=== PATIENT | female | born 1940 | race Caucasian/White ===

== ENCOUNTER → 2019-10-18 13:54 | Outpatient (BNVA) | payer MEDICARE, SELFPAY | PROVIDERS: Family Provider Nurse Practitioner Family; PCP Nurse Practitioner Family; Visit Provider Nurse Practitioner Family | DX: J22 Unspecified acute lower respiratory infection (principal); I70.90 Unspecified atherosclerosis | CPT/HCPCS: 71046 ==

== ENCOUNTER → 2020-07-02 09:32 | Outpatient (BNVA) | payer MEDICARE, SELFPAY | PROVIDERS: Family Provider Nurse Practitioner Family; PCP Nurse Practitioner Family; Visit Provider Nurse Practitioner Family | DX: D64.9 Anemia, unspecified (principal); E11.9 Type 2 diabetes mellitus without complications; Z79.4 Long term (current) use of insulin; E55.9 Vitamin D deficiency, unspecified; E78.2 Mixed hyperlipidemia; I10 Essential (primary) hypertension; R39.9 Unspecified symptoms and signs involving the genitourinary system | CPT/HCPCS: 80053; 80061; 81003; 82306; 82728; 83036; 83550; 84443; 85025 ==

== ENCOUNTER 2020-07-09 11:12 | Emergency (ER) | payer MEDICARE, SELFPAY ==
--- NOTE | 2020-07-09 11:15 | XRR_ITS ---
PROCEDURE INFORMATION: Exam: XR Chest, 1 View Exam date and time: 07/09/2020 11:37 AM Age: 79 years old Clinical indication: Cough TECHNIQUE: Imaging protocol: XR of the chest Views: 1 view. COMPARISON: CR XR chest 2V* [id number] 10/18/2019 10:52 AM FINDINGS: Lungs: Emphysema No focal infiltrate. Question subtle interstitial prominence left lung base. Consider follow-up two view chest if indicated. Pleural space: Unremarkable. No pleural effusion. No pneumothorax. Heart/Mediastinum: Unremarkable. No cardiomegaly. Bones/joints: Unremarkable. XR/XR chest 1V portable [id number] IMPRESSION: No focal infiltrate. Question subtle interstitial prominence left lung base. Consider follow-up two view chest if indicated.
[2020-07-09 11:35] VITALS: BP 112/75; PULSE 77; RESP 20; TEMP 37.8; O2SAT 97; BMI 30.2
--- NOTE | 2020-07-09 11:51 | ECG_ITS ---
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 [id number] f
--- NOTE | 2020-07-09 12:03 | ED_ITS ---
HPI - Fever General: Chief Complaint: Fever Stated Complaint: FEVER, COUGH Time Seen by Provider: 07/09/20 11:48 Source: patient Mode of arrival: ambulatory Limitations: no limitations History of Present Illness: HPI Narrative: 79-year-old female who states she has had a cough along with fever over the last week. States she is in mild shortness of breath. Has had some nausea with no vomiting. Patient is currently in no distress and is 96% on room air. She has unknown sick contacts. Patient does have a temperature of 100 here. Denies any chest pain. Associated symptoms: Deny abdominal pain, chest pain, diarrhea, dysuria, headache(s), nausea or vomiting Review of Systems Const: Reports: fever(s) Eyes: Denies: blurry vision or eye discomfort ENMT: Denies: throat pain or dental pain Card: Denies: chest pain Resp: Reports: dyspnea and non-productive cough GI: Denies: abdominal pain, nausea, vomiting or diarrhea : Denies: dysuria Musc: Denies: neck pain or back pain Skin/Breast: Denies: rash Neuro: Denies: headache(s) Psych: Denies: depression Carlito/Lymph: Denies: easy bruising All/Imm: Denies: urticaria PFSH ED PFSH: Medical History Anemia Diabetes mellitus, type II Fibromyalgia Hypertension Mixed hyperlipidemia Systemic lupus erythematosus arthritis Vitamin D deficiency Surgical History Status post total left knee replacement Family History Other Anemia Social History Smoking and tobacco status: never smoked Second hand smoke exposure: No Smoking risk assessment/counseling performed?: No Alcohol intake: never Desire information about alcohol rehabilitation?: No Counseling given: No Desire information about substance/drug rehabilitation?: No Counseling given: No Physical Exam Const: COMMON NORMALS: no acute distress, patient oriented x3 and healthy appearing HENMT: COMMON NORMALS: normocephalic and atraumatic HEAD & SCALP: normocephalic and atraumatic Eye: COMMON NORMALS: Equal, round and reactive pupils present and EOMs intact bilaterally PUPIL: Yes Equal, round and reactive pupils present Neck/C-Spine: COMMON NORMALS: full ROM and supple Chest: COMMONS NORMALS: normal inspection of the chest and normal palpation of entire chest wall Resp: COMMON NORMALS: normal respiratory effort, No retractions, No use of accessory muscles and clear to auscultation bilaterally AUSCULTATION: clear to auscultation bilaterally Cardio: COMMON NORMALS: regular rate, regular rhythm and No murmurs present (Cardio) RATE: regular rate RHYTHM: regular rhythm GI: COMMON NORMALS: Normal to inspection, nondistended, normoactive bowel sounds present, Soft to palpation, non-tender and no masses PALPATION: Yes Soft to palpation Extremity: COMMON NORMALS: normal to inspection and full ROM Neuro: COMMON NORMALS: patient oriented x3, moves all extremities and no focal motor deficits Psych: COMMON NORMALS: mental status grossly normal, Normal thought process present and cooperative THOUGHT PROCESS: Normal thought process present Skin: COMMON NORMALS: no rashes or lesions noted and no wounds GENERAL SKIN EXAM: no rashes or lesions noted Course Vital Signs: Vital signs: Vital Signs Temperature 98.7 F 07/09/20 12:20 Pulse Rate 78 07/09/20 12:20 Respiratory Rate 18 07/09/20 12:20 Blood Pressure 141/88 07/09/20 12:20 Pulse Oximetry 96 07/09/20 12:20 MDM - Fever MDM Narrative: Medical decision making narrative: Patient presents here with cough along with fever and likely a viral URI. She is well-appearing here and x-ray is normal. Patient's lab work here is all normal as well and she has no signs of sepsis. Will send a COVID screening out to [place]. I informed her to quarantine until the results are back. She is to follow-up with her PCP next week and is to return to the ER if worsening. She understands and agrees to the plan. Lab Data: Labs: Lab Results 07/09/20 07/09/20 07/09/20 Range/Units 12:10 12:10 12:10 WBC 6.5 (4.0-10.0) 10^3/ uL RBC 4.22 (4.1-5.3) 10^6/u L Hgb 13.2 (11.5-15.3) g/dL Hct 41.5 (37.0-47.0) % MCV 98.3 (81-99) fL MCH 31.3 (28.0-34.0) pg MCHC 31.8 (30.0-36.0) g/dL RDW 14.7 (12.1-15.1) % Plt Count 265 (130-400) 10^3/c mm MPV 9.1 (7.4-10.4) fL Neut % (Auto) 66.9 % Lymph % (Auto) 21.0 % [place] % (Auto) 10.6 % Eos % (Auto) 0.8 % Baso % (Auto) 0.2 % Neut # (Auto) 4.38 (1.8-7.7) 10^3/u L Lymph # (Auto) 1.4 (0.8-4.8) 10^3/u L [place] # (Auto) 0.7 (0.2-0.9) 10^3/u L Eos # (Auto) 0.1 (0.0-0.8) 10^3/u L Baso # (Auto) 0.0 (0.0-0.1) 10^3/u L Nucleated RBC % (a uto) 0 % Nucleated RBCs # 0.0 /100WBC Fibrinogen 409 (174-498) mg/dL Sodium 137 (136-145) mmol/L Potassium 3.1 L (3.5-5.1) mmol/L Chloride 100 (98-107) mmol/L Carbon Dioxide 25 (22-29) mmol/L Anion Gap 15.1 (5-19) BUN 18 (8-23) mg/dL Creatinine 0.8 (0.5-0.9) mg/dL GFR Calculation Not Reportable Glucose 110 (65-115) mg/dL Calculated Osmolal ity 287 (285-295) mOsm/k g Lactate (0.5-2.2) mmol/L Calcium 9.2 (8.5-10.5) mg/dL Total Bilirubin 0.2 (0.15-1.2) mg/dL AST 49 H (0-32) U/L ALT 41 H (0-33) U/L Alkaline Phosphata se 47 (35-105) IU/L NT-Pro-B Natriuret Pep 280 (0-450) pg/mL Total Protein 6.6 (6.6-8.7) g/dL Albumin 3.8 (3.5-5.2) g/dL Globulin 2.8 (1.3-4.6) g/dL 07/09/20 Range/Units 12:10 WBC (4.0-10.0) 10^3/ uL RBC (4.1-5.3) 10^6/u L Hgb (11.5-15.3) g/dL Hct (37.0-47.0) % MCV (81-99) fL MCH (28.0-34.0) pg MCHC (30.0-36.0) g/dL RDW (12.1-15.1) % Plt Count (130-400) 10^3/c mm MPV (7.4-10.4) fL Neut % (Auto) % Lymph % (Auto) % [place] % (Auto) % Eos % (Auto) % Baso % (Auto) % Neut # (Auto) (1.8-7.7) 10^3/u L Lymph # (Auto) (0.8-4.8) 10^3/u L [place] # (Auto) (0.2-0.9) 10^3/u L Eos # (Auto) (0.0-0.8) 10^3/u L Baso # (Auto) (0.0-0.1) 10^3/u L Nucleated RBC % (a uto) % Nucleated RBCs # /100WBC Fibrinogen (174-498) mg/dL Sodium (136-145) mmol/L Potassium (3.5-5.1) mmol/L Chloride (98-107) mmol/L Carbon Dioxide (22-29) mmol/L Anion Gap (5-19) BUN (8-23) mg/dL Creatinine (0.5-0.9) mg/dL GFR Calculation Glucose (65-115) mg/dL Calculated Osmolal ity (285-295) mOsm/k g Lactate 1.2 (0.5-2.2) mmol/L Calcium (8.5-10.5) mg/dL Total Bilirubin (0.15-1.2) mg/dL AST (0-32) U/L ALT (0-33) U/L Alkaline Phosphata se (35-105) IU/L NT-Pro-B Natriuret Pep (0-450) pg/mL Total Protein (6.6-8.7) g/dL Albumin (3.5-5.2) g/dL Globulin (1.3-4.6) g/dL Imaging Data^: CXR: Radiologist's impression: [address] [address] XRay Report Signed Patient: Sia Santillan Unit #: [id number] : 1940 Age/Sex: 79 / F ADM Date: 07/09/20 Loc: ER Room/Bed: Attending Dr: Ordering Provider/Ordering MD: Mendoza Sharp MD Date of Service: 07/09/20 Procedure(s): XR chest 1V portable [id number] Accession Number(s): [id number] Report Number: [id number] PROCEDURE INFORMATION: Exam: XR Chest, 1 View Exam date and time: 07/09/2020 11:37 AM Age: 79 years old Clinical indication: Cough TECHNIQUE: Imaging protocol: XR of the chest Views: 1 view. COMPARISON: CR XR chest 2V* [id number] 10/18/2019 10:52 AM FINDINGS: Lungs: Emphysema No focal infiltrate. Question subtle interstitial prominence left lung base. Consider follow-up two view chest if indicated. Pleural space: Unremarkable. No pleural effusion. No pneumothorax. Heart/Mediastinum: Unremarkable. No cardiomegaly. Bones/joints: Unremarkable. XR/XR chest 1V portable [id number] IMPRESSION: No focal infiltrate. Question subtle interstitial prominence left lung base. Consider follow-up two view chest if indicated. EKG Data^: EKG 1: Attestation: I personally reviewed and interpreted this EKG as follows: EKG interpretation date: 07/09/20 EKG interpretation time: 12:12 Interpretation: nsr hr [address] or t wave abnormalities qrs 88 qtc 440 Discharge Plan Discharge Patient Disposition: Home Clinical Impression: Upper respiratory infection Qualifiers: URI type: unspecified URI Qualified Code(s): J06.9 - Acute upper respiratory infection, unspecified Condition: Stable Prescriptions: No Action lidocaine HCl [Xylocaine] 10 mg/mL (1 %) solution 2 ml IM ONCE Qty: 1 RF: 0 ceftriaxone 1 gram recon soln 1 gm IM ONCE Qty: 1 RF: 0 dexamethasone sodium phosphate 10 mg/mL solution 4 mg IM ONCE Qty: 0.4 RF: 0 albuterol sulfate [ProAir HFA] 90 mcg/actuation HFA aerosol inhaler 1 inh INHALATION Q6H PRN (Reason: shortness of breath or wheezing) Qty: 8.5 RF: 2 metformin 850 mg tablet 850 mg PO DAILY RF: 0 methotrexate sodium 2.5 mg tablet 2.5 mg PO DAILY RF: 0 prednisone 10 mg tablet 30 mg PO QDAY Qty: 90 RF: 5 metoprolol tartrate 50 mg tablet 50 mg PO BID Qty: 60 RF: 5 pravastatin 10 mg tablet 10 mg PO DAILY Qty: 30 RF: 2 hydrochlorothiazide 25 mg tablet See Rx Instructions .ROUTE .COMPLEX Qty: 45 RF: 0 potassium chloride 10 mEq capsule, extended release See Rx Instructions .ROUTE .COMPLEX Qty: 30 RF: 5 trazodone 150 mg tablet 150 mg PO DAILY Qty: 30 RF: 0 Discharge Orders: Discharge Order (Routine); Ordered 07/09/20 Ordered By: Mendoza Sharp Referrals: ROBIN Rosas, PRODUCTION SUPERVISOR [Primary Care Provider] - 1-3 days Discharge Diet: Advance as tolerated Discharge Activity: Resume usual activity Discharge Date/Time: 07/09/20 13:10 Coding Level of Care Code ED Bridge Mechanic for Lynneg Fwd Exam Comprehensive
[2020-07-09] MEDS: acetaminophen 325 mg Tablet 650 MG PO (12:12)
[2020-07-09 12:17] LABS: Basophils % 0.2 %; Eosinophils # 0.1 10^3/uL (0.0-0.8); Eosinophils % 0.8 %; Hematocrit 41.5 % (37.0-47.0); Hemoglobin 13.2 g/dL (11.5-15.3); Lymphocytes # 1.4 10^3/uL (0.8-4.8); Mean Corpuscular HGB Conc 31.8 g/dL (30.0-36.0); Mean Corpuscular Hemoglobin 31.3 pg (28.0-34.0); Mean Corpuscular Volume 98.3 fL (81-99); Mean Platelet Volume 9.1 fL (7.4-10.4); Monocytes # 0.7 10^3/uL (0.2-0.9); Monocytes % 10.6 %; Neutrophils # 4.38 10^3/uL (1.8-7.7); Neutrophils % 66.9 %; Nucleated Red Blood Cells % 0 %; Platelet Count 265 10^3/cmm (130-400); Red Blood Count 4.22 10^6/uL (4.1-5.3); Red Cell Distribution Width 14.7 % (12.1-15.1); White Blood Count 6.5 10^3/uL (4.0-10.0)
[2020-07-09 12:20] VITALS: BP 141/88; PULSE 78; RESP 18; TEMP 37.1; O2SAT 96
[2020-07-09 12:33] LABS: Fibrinogen 409 mg/dL (174-498)
[2020-07-09 12:36] LABS: Lactate (Lactic Acid level) 1.2 mmol/L (0.5-2.2)
[2020-07-09 12:45] LABS: Alanine Aminotransferase 41 U/L (0-33); Albumin Level 3.8 g/dL (3.5-5.2); Alkaline Phosphatase 47 IU/L (35-105); Anion Gap 15.1 (5-19); Aspartate Amino Transferase 49 U/L (0-32); Blood Urea Nitrogen 18 mg/dL (8-23); Calcium 9.2 mg/dL (8.5-10.5); Carbon Dioxide 25 mmol/L (22-29); Chloride 100 mmol/L (98-107); Globulin 2.8 g/dL (1.3-4.6); Glucose 110 mg/dL (65-115); NT Pro B Type Natriuretic Pept 280 pg/mL (0-450); Osmolality Calculated 287 mOsm/kg (285-295); Potassium 3.1 mmol/L (3.5-5.1); Sodium 137 mmol/L (136-145); Total Bilirubin 0.2 mg/dL (0.15-1.2); Total Protein 6.6 g/dL (6.6-8.7)
[2020-07-09 13:07] VITALS: BP 128/65; PULSE 73; RESP 18; TEMP 36.9; O2SAT 94
[2020-07-10 17:17] LABS: Quest SARS-CoV-2 RNA DETECTED (NOT DETECTED)
== END 2020-07-09 13:10 | disposition home or self-care (01) ==
PROVIDERS: Emergency Provider Emergency Medicine; Family Provider Nurse Practitioner Family; PCP Nurse Practitioner Family
DX: U07.1 COVID-19 (principal); Z79.84 Long term (current) use of oral hypoglycemic drugs; E11.9 Type 2 diabetes mellitus without complications; I10 Essential (primary) hypertension; E78.2 Mixed hyperlipidemia; M32.9 Systemic lupus erythematosus, unspecified
CPT/HCPCS: 12345; 36415; 71045; 80053; 83605; 83880; 85025; 85384; 87040; 87635; 93005; 99282; 99283

== ENCOUNTER 2020-07-15 10:05 | Inpatient (IN) | payer MEDICARE, SELFPAY ==
[2020-07-15] VITALS (11 sets, daily range): BP systolic 122–153; BP diastolic 62–100; PULSE 72–92; RESP 10–26; TEMP 36.6–39.5; O2SAT 93–99; BMI 30.6
--- NOTE | 2020-07-15 10:12 | XR_ITS ---
WS: [id number] CHEST XRAY TECHNIQUE: Portable chest. CLINICAL INFORMATION: dypsnea, COVID + COMPARISON: July 09, 2020 FINDINGS: Heart: Cardiomegaly. Lungs: Chronic emphysematous changes. New interstitial thickening right greater than left lung bases. No significant pleural fluid. Normal pulmonary vascularity. Bones: Normal visualized bony structures. XR/XR chest 1V portable [id number] IMPRESSION: 1. New interstitial thickening likely interstitial infiltrates in both lung ba ses right greater than left. Recommend correlation for pneumonitis. 2. Cardiomegaly with normal pulmonary vascularity.
--- NOTE | 2020-07-15 10:24 | ED_ITS ---
HPI - SOB/Dyspnea General: Chief Complaint: Shortness of Breath/Dyspnea Stated Complaint: WEAKNESS, COVID + Time Seen by Provider: 07/15/20 10:07 History of Present Illness: HPI Narrative: 79 yo female she returns complaining of generalized weakness and cough shortness of breath she has a fever of 103 she was seen 1 week ago on July 09 with a positive COVID test at that time. He has had increasing shortness of breath with a nose Tamika nausea and vomiting and some diarrhea. Since the time of diagnosis is gotten progressively worse. She is now requiring oxygen at 2 L/min. MD elicited complaint: shortness of breath and cough Onset (ago): day(s) Context: recent illness (COVID-19) and anxiety Timing: constant Severity: moderate Exacerbating factors: exertion and coughing Relieving factors: rest Associated symptoms: Reports cough and fever(s); Deny abdominal pain, chest congestion, chest pain, diaphoresis, dizziness, extremity pain, hemoptysis, lightheadedness, myalgias, nausea, orthopnea, palpitations, paresthesias, polydipsia, polyuria, rash, sense of impending doom, syncope or vomiting Treatment prior to arrival: none Review of Systems Const: Reports: fever(s); Denies: diaphoresis ENMT: Denies: throat pain, ear or mastoid pain, nasal discharge or nasal congestion Card: Denies: chest pain, palpitations, lightheadedness, syncope or orthopnea Resp: Denies: hemoptysis or chest congestion GI: Denies: abdominal pain, nausea or vomiting : Denies: flank pain, difficulty voiding, dysuria, urinary frequency or urinary urgency Musc: Denies: extremity pain Skin/Breast: Denies: rash or pruritus Neuro: Denies: dizziness Endo: Denies: polyuria or polydipsia PFSH ED PFSH: Medical History Anemia Diabetes mellitus, type II -A1c at goal-6.1 (06/2020) -Accu-Cheks, ISS, hypoglycemia precautions -Hold metformin Fibromyalgia Hypertension -Currently hemodynamically stable, continue to monitor vital signs -continue oral antihypertensives Mixed hyperlipidemia -CPK wnl, on statin Systemic lupus erythematosus arthritis -Hold methotrexate, resume oral steroids Vitamin D deficiency Surgical History Status post total left knee replacement Family History Other Anemia Social History Smoking and tobacco status: never smoked Second hand smoke exposure: No Smoking risk assessment/counseling performed?: No Alcohol intake: never Desire information about alcohol rehabilitation?: No Counseling given: No Desire information about substance/drug rehabilitation?: No Counseling given: No Lives independently: Yes Marital status: / Physical Exam Const: COMMON NORMALS: no acute distress GENERAL APPEARANCE: cooperative and comfortable ORIENTATION/CONSCIOUSNESS: Yes awake, Yes oriented to person, Yes oriented to place and Yes oriented to time HENMT: COMMON NORMALS: normocephalic, atraumatic and hearing grossly normal bilaterally HEAD & SCALP: normocephalic and atraumatic Eye: COMMON NORMALS: Equal, round and reactive pupils present, EOMs intact bilaterally, conjunctivae normal and no scleral icterus CONJUNCTIVA: Yes conjunctivae normal PUPIL: Yes Equal, round and reactive pupils present Neck/C-Spine: COMMON NORMALS: full ROM, no lymphadenopathy, supple and no JVD Resp: AUSCULTATION: rhonchi (Mild) and wheezes (Very slight) expiratory wheezes Cardio: COMMON NORMALS: no JVD, regular rate, regular rhythm and No murmurs present (Cardio) RATE: regular rate RHYTHM: regular rhythm GI: COMMON NORMALS: Soft to palpation and No hepatosplenomegaly present AUSCULTATION: Yes normoactive bowel sounds PALPATION: Yes Soft to palpation, No Tenderness to palpation present (GI), No Guarding due to palpation present (GI) and Yes No hepatosplenomegaly present Extremity: COMMON NORMALS: normal to inspection, capillary refill normal, no clubbing, cyanosis or edema, no calf tenderness and no pedal edema Neuro: SENSORIUM/ORIENTATION: Yes oriented to person, Yes oriented to place and Yes oriented to time Skin: COMMON NORMALS: no rashes or lesions noted GENERAL SKIN EXAM: no rashes or lesions noted Course Vital Signs: Vital signs: Vital Signs Temperature 96.8 F L 07/18/20 12:53 Pulse Rate 52 L 07/18/20 12:53 Respiratory Rate 14 07/18/20 12:53 Blood Pressure 148/89 07/18/20 12:53 Pulse Oximetry 97 07/18/20 12:53 MDM - SOB/Dyspnea Lab Data: Labs: Lab Results 07/15/20 07/15/20 07/15/20 Range/Units 10:52 11:43 11:43 WBC 4.0 (4.0-10.0) 10^3/ uL RBC 4.42 (4.1-5.3) 10^6/u L Hgb 13.6 (11.5-15.3) g/dL Hct 42.9 (37.0-47.0) % MCV 97.1 (81-99) fL MCH 30.8 (28.0-34.0) pg MCHC 31.7 (30.0-36.0) g/dL RDW 14.7 (12.1-15.1) % Plt Count 275 (130-400) 10^3/c mm MPV 8.8 (7.4-10.4) fL Neut % (Auto) 48.9 % Lymph % (Auto) 32.8 % [place] % (Auto) 15.9 % Eos % (Auto) 0.0 % Baso % (Auto) 0.2 % Neut # (Auto) 1.96 (1.8-7.7) 10^3/u L Lymph # (Auto) 1.3 (0.8-4.8) 10^3/u L [place] # (Auto) 0.6 (0.2-0.9) 10^3/u L Eos # (Auto) 0.0 (0.0-0.8) 10^3/u L Baso # (Auto) 0.0 (0.0-0.1) 10^3/u L Nucleated RBC % (a uto) 0 % Nucleated RBCs # 0.0 /100WBC Fibrinogen 564 H (174-498) mg/dL D-Dimer 1.10 H (0-0.59) ug/mIFE U Specimen Type Arterial Sample Site Lb ABG pH 7.48 H (7.35-7.45) ABG pCO2 37.8 (35-45) mmHg ABG pO2 79.0 L (80.0-100.0) mmH g ABG HCO3 28.3 H (22-26) mmol/L ABG Base Excess 4.7 H (-2.0-2.0) mmol/ L Que Test Pos Hematocrit 41.2 (37-47) % O2 Delivery Device Nc O2 Liters/Min 2.0 % FiO2 28.0 % Senior Abap Developer ID Jmn Sodium (136-145) mmol/L Potassium (3.5-5.1) mmol/L Chloride (98-107) mmol/L Carbon Dioxide (22-29) mmol/L Anion Gap (5-19) BUN (8-23) mg/dL Creatinine (0.5-0.9) mg/dL GFR Calculation Glucose (65-115) mg/dL Calculated Osmolal ity (285-295) mOsm/k g Lactic Acid (0.5-2.2) mmol/L Calcium (8.5-10.5) mg/dL Ferritin (15-150) ng/mL Total Bilirubin (0.15-1.2) mg/dL AST (0-32) U/L ALT (0-33) U/L Alkaline Phosphata se (35-105) IU/L Lactate Dehydrogen ase (135-214) U/L Creatine Kinase (26-192) U/L C-Reactive Protein (0.0-4.9) mg/L Total Protein (6.6-8.7) g/dL Albumin (3.5-5.2) g/dL Globulin (1.3-4.6) g/dL Procalcitonin (0-0.5) ng/mL 07/15/20 07/15/20 Range/Units 11:43 11:43 WBC (4.0-10.0) 10^3/ uL RBC (4.1-5.3) 10^6/u L Hgb (11.5-15.3) g/dL Hct (37.0-47.0) % MCV (81-99) fL MCH (28.0-34.0) pg MCHC (30.0-36.0) g/dL RDW (12.1-15.1) % Plt Count (130-400) 10^3/c mm MPV (7.4-10.4) fL Neut % (Auto) % Lymph % (Auto) % [place] % (Auto) % Eos % (Auto) % Baso % (Auto) % Neut # (Auto) (1.8-7.7) 10^3/u L Lymph # (Auto) (0.8-4.8) 10^3/u L [place] # (Auto) (0.2-0.9) 10^3/u L Eos # (Auto) (0.0-0.8) 10^3/u L Baso # (Auto) (0.0-0.1) 10^3/u L Nucleated RBC % (a uto) % Nucleated RBCs # /100WBC Fibrinogen (174-498) mg/dL D-Dimer (0-0.59) ug/mIFE U Specimen Type Sample Site ABG pH (7.35-7.45) ABG pCO2 (35-45) mmHg ABG pO2 (80.0-100.0) mmH g ABG HCO3 (22-26) mmol/L ABG Base Excess (-2.0-2.0) mmol/ L Que Test Hematocrit (37-47) % O2 Delivery Device O2 Liters/Min % FiO2 % Senior Abap Developer ID Sodium 133 L (136-145) mmol/L Potassium 3.4 L (3.5-5.1) mmol/L Chloride 94 L (98-107) mmol/L Carbon Dioxide 28 (22-29) mmol/L Anion Gap 14.4 (5-19) BUN 13 (8-23) mg/dL Creatinine 0.8 (0.5-0.9) mg/dL GFR Calculation Not Reportable Glucose 99 (65-115) mg/dL Calculated Osmolal ity 276 L (285-295) mOsm/k g Lactic Acid 1.1 (0.5-2.2) mmol/L Calcium 8.6 (8.5-10.5) mg/dL Ferritin 798 H (15-150) ng/mL Total Bilirubin 0.4 (0.15-1.2) mg/dL AST 35 H (0-32) U/L ALT 25 (0-33) U/L Alkaline Phosphata se 52 (35-105) IU/L Lactate Dehydrogen ase 308 H (135-214) U/L Creatine Kinase 37 (26-192) U/L C-Reactive Protein 77.7 H (0.0-4.9) mg/L Total Protein 6.8 (6.6-8.7) g/dL Albumin 3.7 (3.5-5.2) g/dL Globulin 3.1 (1.3-4.6) g/dL Procalcitonin 0.10 (0-0.5) ng/mL Discharge Plan Discharge Patient Disposition: Admitted As Inpatient Admit Provider: Oneyda Kilpatrick Clinical Impression: COVID-19 virus infection, Anemia Condition: Stable Interventions: ED Discharge Assessment Last Done: 07/15/20 21:41 ED Charges Last Done: 07/15/20 21:41 Discharge Date/Time: 07/15/20 21:20 Coding Level of Care Code ED Internal Medicine Hospitalist for Avery Pennington
[2020-07-15 11:08] LABS: ABG PCO2 37.8 mmHg (35-45); ABG PH Result 7.48 (7.35-7.45); Base Excess ABG 4.7 mmol/L (-2.0-2.0); Blood Gas Allen Test POS; HCO3 ABG 28.3 mmol/L (22-26)
[2020-07-15 11:09] LABS: Arterial Blood Gas Hematocrit 41.2 % (37-47); Blood Gas Sample Site LB; Blood Gas Sample Type ARTERIAL; Oxygen Device NC
[2020-07-15 11:49] LABS: Basophils % 0.2 %; Hematocrit 42.9 % (37.0-47.0); Hemoglobin 13.6 g/dL (11.5-15.3); Lymphocytes # 1.3 10^3/uL (0.8-4.8); Lymphocytes % 32.8 %; Mean Corpuscular HGB Conc 31.7 g/dL (30.0-36.0); Mean Corpuscular Hemoglobin 30.8 pg (28.0-34.0); Mean Corpuscular Volume 97.1 fL (81-99); Mean Platelet Volume 8.8 fL (7.4-10.4); Monocytes # 0.6 10^3/uL (0.2-0.9); Monocytes % 15.9 %; Neutrophils # 1.96 10^3/uL (1.8-7.7); Neutrophils % 48.9 %; Nucleated Red Blood Cells % 0 %; Platelet Count 275 10^3/cmm (130-400); Red Blood Count 4.42 10^6/uL (4.1-5.3); Red Cell Distribution Width 14.7 % (12.1-15.1)
[2020-07-15 12:10] LABS: Fibrinogen 564 mg/dL (174-498)
[2020-07-15 12:29] LABS: Alanine Aminotransferase 25 U/L (0-33); Albumin Level 3.7 g/dL (3.5-5.2); Alkaline Phosphatase 52 IU/L (35-105); Anion Gap 14.4 (5-19); Aspartate Amino Transferase 35 U/L (0-32); Blood Urea Nitrogen 13 mg/dL (8-23); C Reactive Protein 77.7 mg/L (0.0-4.9); Calcium 8.6 mg/dL (8.5-10.5); Carbon Dioxide 28 mmol/L (22-29); Chloride 94 mmol/L (98-107); Creatine Phosphokinase 37 U/L (26-192); Ferritin 798 ng/mL (15-150); Globulin 3.1 g/dL (1.3-4.6); Glucose 99 mg/dL (65-115); Lactate Dehydrogenase 308 U/L (135-214); Osmolality Calculated 276 mOsm/kg (285-295); Potassium 3.4 mmol/L (3.5-5.1); Sodium 133 mmol/L (136-145); Total Bilirubin 0.4 mg/dL (0.15-1.2); Total Protein 6.8 g/dL (6.6-8.7)
[2020-07-15] MEDS: dexamethasone 4 mg/mL INJ 6 MG IVP (12:33)
[2020-07-15] MEDS: ondansetron 2 mg/ML SDV 2 mL 4 MG IVP (12:33)
[2020-07-15 13:26] LABS: Lactic Sepsis W/Reflex 1.1 mmol/L (0.5-2.2); Slide Review Slide Review Perform
[2020-07-15] MEDS: acetaminophen 325 mg Tablet 650 MG PO (14:30)
--- NOTE | 2020-07-15 16:13 | PC.NURSE ---
Temp decreased with medication. Feeling better.
--- NOTE | 2020-07-15 19:29 | PM.HP ---
Providers/Chief Complaint Admitting Physician: Oneyda Kilpatrick MD Primary Care Provider: CRYSTAL Johnson Chief Complaint: WEAKNESS, COVID + History of Present Illness Sia Santillan is a 79 year old female with PMHx noted below presents with complaints of worsening generalized weakness, fatigue, loss of sense of taste and smell, decreased appetite, nausea, dry heaves, malaise and fever for the past several days. She was initially diagnosed with COVID-19 on 07/09 and initially seemed to do well, was seen in the ER on that day and has been compliant with self-isolation precautions. Unfortunately, over the past few days she has felt progressively poorly to the point that she does not feel comfortable being at home on her own. She is known to me from a previous encounter. She is not oxygen dependent at baseline and is currently requiring 2 L nasal cannula with saturation in the mid 90s. Her temperature on triage was as high as 103.1F but this has normalized with Tylenol. She is otherwise hemodynamically stable. Work-up shows normal CBC, mild hyponatremia with a sodium of 133, mild hypokalemia with a potassium of 3.4, normal renal function, elevated d-dimer, fibrinogen, ferritin, CRP and LDH. CPK and lactic acid are normal. Chest x-ray is reported as interstitial thickening in bilateral lung bases, worse on the right in a background of chronic emphysema. She has received her first dose of Remdesevir as well as a dose of steroids. Due to need for continued monitoring of respiratory status, supplemental oxygen support she will be admitted to viral ICU for continued management. Review of Systems Const: Reports: fever(s), chills, body aches, change in appetite (decreased appetite), fatigue and malaise Eyes: Denies: change in vision ENMT: Reports: dry mouth and other (loss of sense of taste and smell) Card: Reports: dyspnea on exertion; Denies: chest pain, swelling of feet/ankles or lightheadedness Resp: Reports: dyspnea and non-productive cough GI: Reports: nausea and diarrhea; Denies: abdominal pain, vomiting or hematochezia : Denies: hematuria Musc: Denies: back pain Skin/Breast: Denies: rash Neuro: Reports: weakness in extremities; Denies: numbness in extremities Psych: Reports: sleeping more; Denies: anxiety Medications/Allergies Home Medications Medication Instructions Recorded Confirmed Last Taken Type metoprolol tartrate 50 mg tablet 50 mg PO BID #60 tab 12/10/19 07/15/20 Unknown Rx pravastatin 10 mg tablet 10 mg PO DAILY #30 tab 04/16/20 07/15/20 Unknown Rx hydrochlorothiazide 25 mg tablet See Rx Instructions .ROUTE 04/18/20 07/15/20 Unknown Rx .COMPLEX #45 tab trazodone 150 mg tablet 150 mg PO DAILY #30 tab 06/19/20 07/15/20 Unknown Rx metformin 850 mg tablet 425 mg PO DAILY 07/02/20 07/15/20 Unknown History methotrexate sodium 2.5 mg tablet See Rx Instructions .ROUTE .COMPLEX 07/02/20 07/15/20 Unknown History azithromycin 250 mg tablet See Rx Instructions PO .COMPLEX #6 07/14/20 07/15/20 07/14/20 Rx tab ondansetron HCl 4 mg tablet 4 mg PO Q8H PRN #15 tab 07/14/20 07/15/20 Unknown Rx Equate Headache Relief 2 tab PO BID 07/15/20 07/15/20 Unknown History ProAir HFA 1 - 2 inh INHALATION Q6H PRN 07/15/20 07/15/20 Unknown History acetaminophen [Tylenol Extra 500 - 1,000 mg PO PRN 07/15/20 07/15/20 07/14/20 History Strength] ascorbic acid (vitamin C) [Vitamin 500 mg PO DAILY 07/15/20 07/15/20 Unknown History C] calcium carbonate [Calcium 600] 600 mg PO DAILY 07/15/20 07/15/20 Unknown History cholecalciferol (vitamin D3) 25 mcg PO DAILY 07/15/20 07/15/20 Unknown History [Vitamin D3] cyanocobalamin (vitamin B-12) 1,000 mcg PO DAILY 07/15/20 07/15/20 Unknown History [Vitamin B-12] folic acid 0.8 mg PO DAILY 07/15/20 07/15/20 Unknown History iron 650 mg PO DAILY 07/15/20 07/15/20 Unknown History multivitamin [Multiple Vitamins] 1 tab PO DAILY 07/15/20 07/15/20 Unknown History potassium chloride 10 meq PO DAILY 07/15/20 07/15/20 Unknown History prednisone 10 mg PO DAILY 07/15/20 07/15/20 Unknown History Allergies Allergy/AdvReac Type Severity Reaction Status Date / Time codeine Allergy Intermediate unknown Verified 07/15/20 10:26 hydrocodone Allergy Intermediate unknown Verified 07/15/20 10:26 ibuprofen Allergy Intermediate unknown Verified 07/15/20 10:26 moxifloxacin [From Avelox] Allergy Intermediate unknown Verified 07/15/20 10:26 sulfamethoxazole [Bactrim] Allergy Intermediate unknown Verified 07/15/20 10:26 tramadol Allergy Intermediate unknown Verified 07/15/20 10:26 trimethoprim [Bactrim] Allergy Intermediate unknown Verified 07/15/20 10:26 PFSH Acute PFSH: Medical History Anemia Diabetes mellitus, type II Fibromyalgia Hypertension Mixed hyperlipidemia Systemic lupus erythematosus arthritis Vitamin D deficiency Surgical History Status post total left knee replacement Family History Other Anemia Social History (Updated 07/15/20 @ 19:37 by Oneyda Kilpatrick MD) Smoking and tobacco status: never smoked Second hand smoke exposure: No Smoking risk assessment/counseling performed?: No Alcohol intake: never Desire information about alcohol rehabilitation?: No Counseling given: No Desire information about substance/drug rehabilitation?: No Counseling given: No Lives independently: Yes Marital status: / Vitals/I&O/Wt Last Vital Signs Temp 98.4 F 07/15/20 18:03 Pulse 72 07/15/20 18:03 Resp 20 H 07/15/20 18:03 BP 122/62 07/15/20 18:03 Pulse Ox 96 07/15/20 18:03 Weight last 48 hrs Weight 73.482 kg Physical Exam Const: COMMON NORMALS: no acute distress, patient oriented x3 and alert GENERAL APPEARANCE: cooperative, comfortable and ill appearing NUTRITIONAL APPEARANCE: overweight ORIENTATION/CONSCIOUSNESS: Yes awake OTHER: -fatigued, looks appropriate for age HENMT: COMMON NORMALS: normocephalic, atraumatic, hearing grossly normal bilaterally and moist oral mucous membranes HEAD & SCALP: normocephalic and atraumatic Eye: COMMON NORMALS: Equal, round and reactive pupils present, EOMs intact bilaterally and conjunctivae normal CONJUNCTIVA: Yes conjunctivae normal PUPIL: Yes Equal, round and reactive pupils present Neck/C-Spine: COMMON NORMALS: full ROM GENERAL: Yes normal visual inspection and Yes trachea midline Resp: COMMON NORMALS: normal respiratory effort, No retractions and No use of accessory muscles EFFORT & INSPECTION: Yes able to speak in complete sentences, Yes symmetric chest movement and No tachypneic AUSCULTATION: rhonchi OTHER: -on 2 L NC, symmetrical air entry bilaterally Cardio: COMMON NORMALS: regular rate, regular rhythm, S1 normal heart sound present, S2 normal heart sound present and No murmurs present (Cardio) RATE: regular rate RHYTHM: regular rhythm HEART SOUNDS: S1 normal heart sound present and S2 normal heart sound present GI: COMMON NORMALS: Normal to inspection, nondistended, normoactive bowel sounds present, Soft to palpation and non-tender INSPECTION: Yes central obesity PALPATION: Yes Soft to palpation Extremity: COMMON NORMALS: normal to inspection, full ROM and no clubbing, cyanosis or edema; negative for no pedal edema Neuro: COMMON NORMALS: patient oriented x3, moves all extremities, no focal motor deficits and no sensory deficits noted SENSORIUM/ORIENTATION: Yes alert Psych: COMMON NORMALS: mental status grossly normal, Normal thought process present, cooperative, normal affect and speech normal SPEECH: Yes normal speech THOUGHT PROCESS: Normal thought process present Skin: COMMON NORMALS: no rashes or lesions noted, no jaundice, no petechiae and no mottling GENERAL SKIN EXAM: no rashes or lesions noted Data : 07/15/20 11:43 07/15/20 11:43 Micro: Microbiology 07/15/20 11:50 Gram Stain - Final Sputum - Expectorated Sputum A&P Assessment and plan (1) COVID-19 virus infection: -Found to be positive for COVID-19 infection on 07/09 and initially seemed to be stable but over the past several days has had ongoing malaise, decreased appetite, nausea, ageusia, anosmia, increasing shortness of breath with decreasing activity, fever and generally been unable to take care of herself. -Isolation precautions -Currently requiring 2 L nasal cannula, not oxygen dependent at baseline. Has been started on remdesevir -Received dose of steroids, continue this -Continue supportive care including vitamin C, zinc, inhaler treatments as needed, antitussives -Check influenza, MRSA, Legionella, bacterial antigens -Order blood culture -Chest x-ray with noted interstitial thickening bilateral lung bases, worse on the right, repeat imaging in about 48 hours to monitor progression -Pulmonary toilet, incentive spirometry, flutter valve, RT to assess and treat -Telemetry monitoring -Monitor vital signs -Close monitoring of respiratory status -Home oxygen evaluation prior to discharge if still oxygen dependent -ABG with noted hypoxia -Elevated fibrinogen, d-dimer, ferritin, CRP, LDH. Continue to trend inflammatory markers -start on AC with Eliquis due to increased risk of thrombosis Status: Acute (2) Hypoxia: -Secondary to acute COVID-19 infection as noted above Status: Acute (3) Systemic lupus erythematosus arthritis: -Hold methotrexate, oral steroids Status: Chronic (4) Hypertension: -Currently hemodynamically stable, continue to monitor vital signs -Resume oral antihypertensives Status: Chronic Qualifiers: Hypertension type: essential hypertension Qualified Code(s): I10 - Essential (primary) hypertension (5) Diabetes mellitus, type II: -A1c at goal-6.1 (06/2020) -Accu-Cheks, ISS, hypoglycemia precautions -Hold metformin Status: Chronic Qualifiers: Diabetes mellitus skilled nursing insulin use: without skilled nursing use Diabetes mellitus complication status: without complication Qualified Code(s): E11.9 - Type 2 diabetes mellitus without complications (6) Fibromyalgia: Status: Chronic (7) Mixed hyperlipidemia: -CPK wnl, resume statin Status: Chronic Additional A&P Information -consistent carb diet as tolerated -GI ppx with famotidine -DVT ppx not needed as on Eliquis -Dispo: home, lives independently -Code status: FULL code -[facility] Necessity Statement*: Sia Rose Santillan's hospital stay will require greater than 2 midnights for management of acute COVID-19 infection with associated hypoxia, started on antiviral treatment and currently requiring supplemental oxygen support. Time Spent in Patient Care: Greater than 35 minutes (>than 50% of time spent in counselling and/or direct pt care on unit). 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
[2020-07-16] VITALS (27 sets, daily range): BP systolic 98–182; BP diastolic 46–102; PULSE 51–92; RESP 7–22; TEMP 36.2–36.9; O2SAT 89–98
[2020-07-16] MEDS: trazodone 150 mg Tablet PO ×2 (00:17→22:00)
[2020-07-16] MEDS: acetaminophen 325 mg Tablet 650 MG PO (00:18)
--- NOTE | 2020-07-16 07:03 | PC.NURSE ---
Shift Events: Patient transferred to unit from ED. Patient alert and oriented x 4, received with patient on 2LO2 nasal cannula. Blood cultures drawn upon arrival. MRSA swab also obtained but patient refused flu swab. Patient rested quietly throughout night. Patient gets up with 1 assist. Attempted several times to get labs. This nurse attempted 4 times and another ICU nurse tried twice. Passed this information onto day shift. Patient needs a line as she only has a 22g in her wrist. Patient was able to wean off of oxygen and currently has an SpO2 of 96% on room air. All other vital signs stable.
[2020-07-16 09:38] LABS: Basophils % 0.4 %; Hematocrit 44.3 % (37.0-47.0); Hemoglobin 14.7 g/dL (11.5-15.3); Lymphocytes # 1.2 10^3/uL (0.8-4.8); Lymphocytes % 48.1 %; Mean Corpuscular HGB Conc 33.2 g/dL (30.0-36.0); Mean Corpuscular Hemoglobin 31.1 pg (28.0-34.0); Mean Corpuscular Volume 93.7 fL (81-99); Mean Platelet Volume 10.1 fL (7.4-10.4); Monocytes # 0.3 10^3/uL (0.2-0.9); Monocytes % 11.6 %; Neutrophils % 36.8 %; Nucleated Red Blood Cells % 0 %; Red Blood Count 4.73 10^6/uL (4.1-5.3); Red Cell Distribution Width 14.4 % (12.1-15.1); White Blood Count 2.6 10^3/uL (4.0-10.0)
[2020-07-16] MEDS: ferrous sulfate EC 325 mg Tablet PO ×2 (09:41→17:12)
[2020-07-16] MEDS: calcium carb-vit d 600mg/400unit 1 Tablet 1 EACH PO (09:41)
[2020-07-16] MEDS: cyanocobalamin 1,000 mcg Tablet 1000 MCG PO (09:41)
[2020-07-16] MEDS: atorvastatin 40 mg Tablet 20 MG PO (09:46)
[2020-07-16] MEDS: ascorbic acid 500 mg Tablet PO (09:46)
[2020-07-16] MEDS: apixaban 5 mg Tablet PO ×2 (09:46→17:12)
[2020-07-16] MEDS: dexamethasone 4 mg/mL INJ 6 MG IVP (09:46)
[2020-07-16] MEDS: potassium chloride ER 10 mEq Tablet 20 MEQ PO (09:46)
[2020-07-16] MEDS: cholecalciferol (vitamin D3) 1,000 unit Tablet 1000 UNIT PO (09:46)
[2020-07-16] MEDS: multivitamin therapeutic Tablet 1 TAB PO (09:46)
[2020-07-16] MEDS: sennosides-docusate Tablet 1 TAB PO ×2 (09:46→17:12)
[2020-07-16] MEDS: metoprolol tartrate 50 mg Tablet PO ×2 (09:46→17:12)
[2020-07-16 10:09] LABS: Neutrophils # 0.95 10^3/uL (1.8-7.7); Platelet Count 220 10^3/cmm (130-400); Slide Review Slide Review Perform
[2020-07-16 12:20] LABS: Influenza A by IFA Negative (Negative); Influenza B by IFA Negative (Negative)
[2020-07-16 15:12] LABS: Alanine Aminotransferase 24 U/L (0-33); Albumin Level 3.5 g/dL (3.5-5.2); Alkaline Phosphatase 52 IU/L (35-105); Anion Gap 15.7 (5-19); Aspartate Amino Transferase 35 U/L (0-32); Blood Urea Nitrogen 24 mg/dL (8-23); C Reactive Protein 64.3 mg/L (0.0-4.9); Calcium 8.7 mg/dL (8.5-10.5); Carbon Dioxide 23 mmol/L (22-29); Chloride 103 mmol/L (98-107); Ferritin 907 ng/mL (15-150); Globulin 2.9 g/dL (1.3-4.6); Glucose 178 mg/dL (65-115); Osmolality Calculated 294 mOsm/kg (285-295); Potassium 3.7 mmol/L (3.5-5.1); Sodium 138 mmol/L (136-145); Total Bilirubin 0.3 mg/dL (0.15-1.2); Total Protein 6.4 g/dL (6.6-8.7)
[2020-07-16 15:18] LABS: Lactate Dehydrogenase 356 U/L (135-214)
--- NOTE | 2020-07-16 16:59 | XR_ITS ---
WS: [id number] XR chest 1V portable [id number] REASON FOR EXAM: PICC Placement FINDINGS: There is blunting and indistinctness of the left costophrenic angle with flattening of the left hemid iaphragm. This same finding is identified on a previous examination of 10/18/2019. No definite acute abnormality in this region. The right lower lung infiltrative change on the examination of 07/15/2020 looks to be nearly completel y resolved. This may have been atelectasis. XR/XR chest 1V portable [id number] IMPRESSION: Interval change as above.
--- NOTE | 2020-07-16 17:22 | PM.PN ---
Subjective Subjective: Interval history: Patient doing well today, has had episodes of maintaining her saturation in the mid 90s on room air, he is in good spirits. Difficulty with lab draws and peripheral IV access so PICC line placed this afternoon. Noted developing neutropenia, otherwise normal CBC. Noted stable inflammatory markers. Afebrile since yesterday afternoon. Noted intermittent bradycardia, currently hemodynamically stable. Medications: Reviewed: Yes Medication Review Details: Active Medications Generic Name Dose Route Start Last Admin Trade Name Freq PRN Reason Stop Dose Admin Acetaminophen 650 mg 07/15/20 23:00 07/16/20 00:18 Tylenol PO 650 mg Q6H PRN Administration Mild/Mod Pain Or Temp >/= 101 Albuterol Sulfate 2 puff 07/16/20 04:50 Ventolin INHALATION Q4H.RESPIRATORY P RN SHORTNESS OF MARCEL TH Apixaban 5 mg 07/16/20 09:00 07/16/20 17:12 Eliquis PO 5 mg BID ASIM Administration Ascorbic Acid 500 mg 07/16/20 09:00 07/16/20 09:46 Vitamin C PO 500 mg DAILY ASIM Administration Atorvastatin Calci um 20 mg 07/16/20 09:00 07/16/20 09:46 Lipitor PO 20 mg DAILY ASIM Administration Calcium Carbonate 1 each 07/16/20 09:00 07/16/20 09:41 Oyster Shell 600 mg-Vit D 400unit PO 1 each DAILY ASIM Administration Cyanocobalamin 1,000 mcg 07/16/20 09:00 07/16/20 09:41 Vitamin B-12 PO 1,000 mcg DAILY ASIM Administration Dexamethasone 6 mg 07/16/20 09:00 07/16/20 09:46 Decadron IVP 6 mg Q24H ASIM Administration Famotidine 20 mg 07/16/20 00:00 07/16/20 15:00 Pepcid Inj IVP Not Given Q12H ASIM Ferrous Sulfate 325 mg 07/16/20 08:00 07/16/20 17:12 Ferrous Sulfate PO 325 mg BIDWM ASIM Administration remdesivir (EUA) 1 00 mg/ 100 mls @ 100 mls /hr 07/16/20 14:30 Sodium Chloride IV 07/19/20 21:59 Q24H ASIM Metoprolol Tartrat e 50 mg 07/16/20 09:00 07/16/20 17:12 Lopressor PO 50 mg BID ASIM Administration Multivitamins Ther apeutic 1 tab 07/16/20 09:00 07/16/20 09:46 Multivitamin Tab PO 1 tab DAILY ASIM Administration Non-Formulary Medi cation 0.8 mg 07/16/20 09:00 Folic Acid PO DAILY ASIM Potassium Chloride 20 meq 07/16/20 09:00 07/16/20 09:46 Klor-Con 10 PO 20 meq DAILY ASIM Administration Senna/Docusate Sod ium 1 tab 07/16/20 09:00 07/16/20 17:12 Senna-S PO 1 tab BID ASIM Administration Trazodone HCl 150 mg 07/16/20 21:00 07/16/20 00:17 Desyrel PO 150 mg BEDTIME ASIM Administration Vitamin D 1,000 unit 07/16/20 09:00 07/16/20 09:46 Vitamin D3 PO 1,000 unit DAILY ASIM Administration codeine Allergy (Intermediate, Verified 07/15/20 10:26) unknown hydrocodone Allergy (Intermediate, Verified 07/15/20 10:26) unknown ibuprofen Allergy (Intermediate, Verified 07/15/20 10:26) unknown moxifloxacin [From Avelox] Allergy (Intermediate, Verified 07/15/20 10:26) unknown sulfamethoxazole [Bactrim] Allergy (Intermediate, Verified 07/15/20 10:26) unknown tramadol Allergy (Intermediate, Verified 07/15/20 10:26) unknown trimethoprim [Bactrim] Allergy (Intermediate, Verified 07/15/20 10:26) unknown Vitals/I&O/Wt Last Vital Signs Temp 98.5 F 07/16/20 16:00 Pulse 83 07/16/20 16:00 Resp 18 07/16/20 16:00 BP 127/88 07/16/20 16:00 Pulse Ox 96 07/16/20 16:00 07/16/20 07/16/20 07/16/20 06:59 14:59 22:59 Intake Total 200 / 200 490 / 490 Balance 200 / 200 490 / 490 Weight last 48 hrs Weight 73.482 kg Physical Exam Const: COMMON NORMALS: no acute distress, patient oriented x3 and alert GENERAL APPEARANCE: cooperative and comfortable NUTRITIONAL APPEARANCE: overweight ORIENTATION/CONSCIOUSNESS: Yes awake OTHER: -looks appropriate for age HENMT: COMMON NORMALS: normocephalic, atraumatic, hearing grossly normal bilaterally and moist oral mucous membranes HEAD & SCALP: normocephalic and atraumatic Eye: COMMON NORMALS: Equal, round and reactive pupils present, EOMs intact bilaterally and conjunctivae normal CONJUNCTIVA: Yes conjunctivae normal PUPIL: Yes Equal, round and reactive pupils present Neck/C-Spine: COMMON NORMALS: full ROM GENERAL: Yes normal visual inspection and Yes trachea midline Resp: COMMON NORMALS: normal respiratory effort, No retractions and No use of accessory muscles EFFORT & INSPECTION: Yes able to speak in complete sentences, Yes symmetric chest movement and No tachypneic AUSCULTATION: rhonchi OTHER: -on 2 L NC, symmetrical air entry bilaterally; intermittently maintaining her saturation appropriately on room air Cardio: COMMON NORMALS: regular rate, regular rhythm, S1 normal heart sound present, S2 normal heart sound present and No murmurs present (Cardio) RATE: regular rate RHYTHM: regular rhythm HEART SOUNDS: S1 normal heart sound present and S2 normal heart sound present GI: COMMON NORMALS: Normal to inspection, nondistended, normoactive bowel sounds present, Soft to palpation and non-tender INSPECTION: Yes central obesity PALPATION: Yes Soft to palpation Extremity: COMMON NORMALS: normal to inspection, full ROM and no clubbing, cyanosis or edema; negative for no pedal edema Neuro: COMMON NORMALS: patient oriented x3, moves all extremities, no focal motor deficits, no sensory deficits noted and gait normal SENSORIUM/ORIENTATION: Yes alert Psych: COMMON NORMALS: mental status grossly normal, Normal thought process present, cooperative, normal affect and speech normal SPEECH: Yes normal speech THOUGHT PROCESS: Normal thought process present Skin: COMMON NORMALS: no rashes or lesions noted, no jaundice, no petechiae and no mottling GENERAL SKIN EXAM: no rashes or lesions noted Data : 07/16/20 08:45 07/16/20 14:26 Micro: Microbiology 07/15/20 11:50 Gram Stain - Final Sputum - Expectorated Sputum Sputum Culture - Preliminary 07/15/20 00:00 MRSA Culture - Final Nose 07/15/20 00:00 Blood Culture - Preliminary Blood SPECIMEN COLLECTED 07/15/20 17:43 Blood Culture - Preliminary Blood SPECIMEN COLLECTED A&P Assessment and plan (1) COVID-19 virus infection: -Found to be positive for COVID-19 infection on 07/09 and initially seemed to be stable but over the past several days has had ongoing malaise, decreased appetite, nausea, ageusia, anosmia, increasing shortness of breath with decreasing activity, fever and generally been unable to take care of herself. -Isolation precautions -Currently requiring 2 L nasal cannula, not oxygen dependent at baseline. Day 2 of remdesevir; with noted improvement, may need total of 3 days treatment -continue steroids -Continue supportive care including vitamin C, zinc, inhaler treatments as needed, antitussives -negative influenza, and MRSA; Legionella, bacterial antigens pending -blood culture pending -Chest x-ray with noted interstitial thickening bilateral lung bases, worse on the right, repeat imaging in about 48 hours to monitor progression -Pulmonary toilet, incentive spirometry, flutter valve, RT to assess and treat -Telemetry monitoring -continue to monitor vital signs -Close monitoring of respiratory status -Home oxygen evaluation prior to discharge if still oxygen dependent -ABG with noted hypoxia -Elevated fibrinogen, d-dimer, ferritin, CRP, LDH. Continue to trend inflammatory markers -on AC with Eliquis due to increased risk of thrombosis Status: Acute (2) Hypoxia: -Secondary to acute COVID-19 infection as noted above; improving Status: Acute (3) Systemic lupus erythematosus arthritis: -Hold methotrexate, oral steroids Status: Chronic (4) Hypertension: -Currently hemodynamically stable, continue to monitor vital signs -continue oral antihypertensives Status: Chronic Qualifiers: Hypertension type: essential hypertension Qualified Code(s): I10 - Essential (primary) hypertension (5) Diabetes mellitus, type II: -A1c at goal-6.1 (06/2020) -Accu-Cheks, ISS, hypoglycemia precautions -Hold metformin Status: Chronic Qualifiers: Diabetes mellitus skilled nursing insulin use: without 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 Diabetes mellitus complication status: without complication Qualified Code(s): E11.9 - Type 2 diabetes mellitus without complications (6) Fibromyalgia: Status: Chronic (7) Mixed hyperlipidemia: -CPK wnl, on statin Status: Chronic Additional A&P Information -consistent carb diet as tolerated -developing neutropenia, monitor cell lines -GI ppx with famotidine -DVT ppx not needed as on Eliquis -mid line access placed due to poor peripheral access and difficulty with lab draws -Dispo: home, lives independently -Code status: FULL code Attestations Medical Necessity Statement*: Patient requires hospitalization for continued management of COVID-19 infection, on antiviral treatment, supportive care, IV steroids. Time Spent in Patient Care: 16 - 35 minutes (>than 50% of time spent in counselling and/or direct pt care on unit). 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
[2020-07-16] MEDS: ondansetron 2 mg/ML SDV 2 mL 4 MG IVP (18:08)
[2020-07-16 19:26] LABS: D Dimer 1.01 ug/mIFEU (0-0.59); Fibrinogen 544 mg/dL (174-498)
--- NOTE | 2020-07-16 22:02 | PC.NURSE ---
Pt refused to take full dose of Trazadone 150mg, wanted only to take 75mg. Gave only the 75mg
--- NOTE | 2020-07-16 22:13 | PC.NURSE ---
Pt states she will rest, does not want to be disturbed will convey her wishes, will continue to monitor patient for changes
[2020-07-17] VITALS (28 sets, daily range): BP systolic 111–153; BP diastolic 51–90; PULSE 47–78; RESP 12–24; TEMP 36.1–36.8; O2SAT 87–98
[2020-07-17] MEDS: famotidine 20 mg/2 mL INJ IVP ×2 (00:11→11:55)
[2020-07-17 05:20] LABS: Basophils % 0.2 %; Hematocrit 40.4 % (37.0-47.0); Hemoglobin 12.5 g/dL (11.5-15.3); Lymphocytes # 1.3 10^3/uL (0.8-4.8); Lymphocytes % 28.3 %; Mean Corpuscular HGB Conc 30.9 g/dL (30.0-36.0); Mean Corpuscular Hemoglobin 30.8 pg (28.0-34.0); Mean Corpuscular Volume 99.5 fL (81-99); Mean Platelet Volume 10.9 fL (7.4-10.4); Monocytes # 0.3 10^3/uL (0.2-0.9); Neutrophils # 2.93 10^3/uL (1.8-7.7); Neutrophils % 63.6 %; Nucleated Red Blood Cells % 0 %; Platelet Count 271 10^3/cmm (130-400); Red Blood Count 4.06 10^6/uL (4.1-5.3); Red Cell Distribution Width 14.6 % (12.1-15.1); White Blood Count 4.6 10^3/uL (4.0-10.0)
[2020-07-17 05:58] LABS: Albumin Level 3.1 g/dL (3.5-5.2); Alkaline Phosphatase 45 IU/L (35-105); Blood Urea Nitrogen 22 mg/dL (8-23); Calcium 8.4 mg/dL (8.5-10.5); Carbon Dioxide 23 mmol/L (22-29); Chloride 104 mmol/L (98-107); Globulin 3.2 g/dL (1.3-4.6); Glucose 185 mg/dL (65-115); Osmolality Calculated 294 mOsm/kg (285-295); Sodium 138 mmol/L (136-145); Total Bilirubin 0.3 mg/dL (0.15-1.2); Total Protein 6.3 g/dL (6.6-8.7)
[2020-07-17 05:59] LABS: Alanine Aminotransferase 23 U/L (0-33); Anion Gap 15.7 (5-19); Aspartate Amino Transferase 41 U/L (0-32); Ferritin 809 ng/mL (15-150); Lactate Dehydrogenase 439 U/L (135-214); Potassium 4.7 mmol/L (3.5-5.1)
--- NOTE | 2020-07-17 06:59 | PC.NURSE ---
report given to brenda aguila in sbar format
[2020-07-17 07:57] LABS: Slide Review Slide Review Perform
[2020-07-17 08:10] LABS: D Dimer 0.96 ug/mIFEU (0-0.59)
[2020-07-17] MEDS: apixaban 5 mg Tablet PO ×2 (08:21→18:03)
[2020-07-17] MEDS: sennosides-docusate Tablet 1 TAB PO ×2 (08:21→18:03)
[2020-07-17] MEDS: metoprolol tartrate 50 mg Tablet PO ×2 (08:21→18:03)
[2020-07-17] MEDS: multivitamin therapeutic Tablet 1 TAB PO (08:21)
[2020-07-17] MEDS: atorvastatin 40 mg Tablet 20 MG PO (08:21)
[2020-07-17] MEDS: ascorbic acid 500 mg Tablet PO (08:22)
[2020-07-17] MEDS: dexamethasone 4 mg/mL INJ 6 MG IVP (08:22)
[2020-07-17] MEDS: cholecalciferol (vitamin D3) 1,000 unit Tablet 1000 UNIT PO (08:22)
[2020-07-17] MEDS: potassium chloride ER 10 mEq Tablet 20 MEQ PO (08:22)
[2020-07-17] MEDS: ferrous sulfate EC 325 mg Tablet PO ×2 (08:23→18:04)
[2020-07-17] MEDS: calcium carb-vit d 600mg/400unit 1 Tablet 1 EACH PO (08:23)
[2020-07-17] MEDS: cyanocobalamin 1,000 mcg Tablet 1000 MCG PO (08:23)
[2020-07-17] MEDS: ondansetron 2 mg/ML SDV 2 mL 4 MG IVP (08:32)
[2020-07-17 11:08] LABS: Fibrinogen 462 mg/dL (174-498)
--- NOTE | 2020-07-17 14:31 | P.PN_ITS ---
Subjective Subjective: Interval history: Has intermittently required some supplemental oxygen, but has been weaned to RA currently. Labs improving, afebrile, intermittent bradycardia, on day 3 of Remdesevir. Very pleasant, reports feeling well, hoping to go home tomorrow. Medications: Reviewed: Yes Medication Review Details: Active Medications Generic Name Dose Route Start Last Admin Trade Name Freq PRN Reason Stop Dose Admin Acetaminophen 650 mg 07/15/20 23:00 07/16/20 00:18 Tylenol PO 650 mg Q6H PRN Administration Mild/Mod Pain Or Temp >/= 101 Albuterol Sulfate 2 puff 07/16/20 04:50 Ventolin INHALATION Q4H.RESPIRATORY P RN SHORTNESS OF MARCEL TH Apixaban 5 mg 07/16/20 09:00 07/17/20 08:21 Eliquis PO 5 mg BID ASIM Administration Ascorbic Acid 500 mg 07/16/20 09:00 07/17/20 08:22 Vitamin C PO 500 mg DAILY ASIM Administration Atorvastatin Calci um 20 mg 07/16/20 09:00 07/17/20 08:21 Lipitor PO 20 mg DAILY ASIM Administration Calcium Carbonate 1 each 07/16/20 09:00 07/17/20 08:23 Oyster Shell 600 mg-Vit D 400unit PO 1 each DAILY ASIM Administration Cyanocobalamin 1,000 mcg 07/16/20 09:00 07/17/20 08:23 Vitamin B-12 PO 1,000 mcg DAILY ASIM Administration Dexamethasone 6 mg 07/16/20 09:00 07/17/20 08:22 Decadron IVP 6 mg Q24H ASIM Administration Famotidine 20 mg 07/16/20 00:00 07/17/20 11:55 Pepcid Inj IVP 20 mg Q12H ASIM Administration Ferrous Sulfate 325 mg 07/16/20 08:00 07/17/20 08:23 Ferrous Sulfate PO 325 mg BIDWM ASIM Administration remdesivir (EUA) 1 00 mg/ 100 mls @ 100 mls /hr 07/16/20 21:00 07/17/20 08:23 Sodium Chloride IV 07/19/20 21:59 Infused Q24H ASIM Infusion Metoprolol Tartrat e 50 mg 07/16/20 09:00 07/17/20 08:21 Lopressor PO 50 mg BID ASIM Administration Multivitamins Ther apeutic 1 tab 10/07/20 09:00 07/17/20 08:21 Multivitamin Tab PO 1 tab DAILY ASIM Administration Non-Formulary Medi cation 0.8 mg 07/16/20 09:00 Folic Acid PO DAILY ASIM Ondansetron HCl 4 mg 07/16/20 18:04 07/17/20 08:32 Zofran IVP 4 mg Q6H PRN Administration NAUSEA AND VOMITI NG Potassium Chloride 20 meq 07/16/20 09:00 07/17/20 08:22 Klor-Con 10 PO 20 meq DAILY ASIM Administration Senna/Docusate Sod ium 1 tab 07/16/20 09:00 07/17/20 08:21 Senna-S PO 1 tab BID ASIM Administration Trazodone HCl 150 mg 07/16/20 21:00 07/16/20 22:00 Desyrel PO 150 mg BEDTIME ASIM Administration Vitamin D 1,000 unit 07/16/20 09:00 07/17/20 08:22 Vitamin D3 PO 1,000 unit DAILY ASIM Administration codeine Allergy (Intermediate, Verified 07/15/20 10:26) unknown hydrocodone Allergy (Intermediate, Verified 07/15/20 10:26) unknown ibuprofen Allergy (Intermediate, Verified 07/15/20 10:26) unknown moxifloxacin [From Avelox] Allergy (Intermediate, Verified 07/15/20 10:26) unknown sulfamethoxazole [Bactrim] Allergy (Intermediate, Verified 07/15/20 10:26) unknown tramadol Allergy (Intermediate, Verified 07/15/20 10:26) unknown trimethoprim [Bactrim] Allergy (Intermediate, Verified 07/15/20 10:26) unknown Vitals/I&O/Wt Last Vital Signs Temp 97.8 F 07/17/20 11:40 Pulse 65 07/17/20 14:00 Resp 20 H 07/17/20 14:00 BP 116/57 07/17/20 14:00 Pulse Ox 96 07/17/20 14:00 07/16/20 07/17/20 07/17/20 22:59 06:59 14:59 Intake Total 680 / 1170 1260 / 1260 Output Total 80 / 80 200 / 280 200 / 200 Balance 600 / 1090 -200 / 890 1060 / 1060 Physical Exam Const: COMMON NORMALS: no acute distress, patient oriented x3 and alert GENERAL APPEARANCE: cooperative and comfortable NUTRITIONAL APPEARANCE: overweight ORIENTATION/CONSCIOUSNESS: Yes awake OTHER: -looks appropriate for age, very pleasant HENMT: COMMON NORMALS: normocephalic, atraumatic, hearing grossly normal bilaterally and moist oral mucous membranes HEAD & SCALP: normocephalic and atraumatic Eye: COMMON NORMALS: Equal, round and reactive pupils present, EOMs intact bilaterally and conjunctivae normal CONJUNCTIVA: Yes conjunctivae normal PUPIL: Yes Equal, round and reactive pupils present Neck/C-Spine: COMMON NORMALS: full ROM GENERAL: Yes normal visual inspection and Yes trachea midline Resp: COMMON NORMALS: normal respiratory effort, No retractions and No use of accessory muscles EFFORT & INSPECTION: Yes able to speak in complete sentences, Yes symmetric chest movement and No tachypneic AUSCULTATION: rhonchi OTHER: -on RA, symmetrical air entry bilaterally; maintaining her sat uration appropriately on room air Cardio: COMMON NORMALS: regular rate, regular rhythm, S1 normal heart sound present, S2 normal heart sound present and No murmurs present (Cardio) RATE: regular rate RHYTHM: regular rhythm HEART SOUNDS: S1 normal heart sound present and S2 normal heart sound present GI: COMMON NORMALS: Normal to inspection, nondistended, normoactive bowel sounds present, Soft to palpation and non-tender INSPECTION: Yes central ob esity PALPATION: Yes Soft to palpation Extremity: COMMON NORMALS: normal to inspection, full ROM and no clubbing, cyanosis or edema; negative for no pedal edema Neuro: COMMON NORMALS: patient oriented x3, moves all extremities, no focal motor deficits, no sensory deficits noted and gait normal SENSOR IUM/ORIENTATION: Yes alert Psych: COMMON NORMALS: mental status grossly normal, Normal thought process present, cooperative, normal affect and speech normal SPEECH: Yes normal speech THOUGHT PROCESS: Normal thought process present Skin: COMMON NORMALS: no rashes or lesions noted, no jaundice, no petechiae and no mottling GENERAL SKIN EXAM: no rashes or lesions noted Data : 07/17/20 04:05 07/17/20 04:05 Micro: Microbiology 07/15/20 11:50 Gram Stain - Final Sputum - Expectorated Sputum Sputum Culture - Final 07/16/20 20:50 Legionella Urinary Antigen - Final Urine,Voided Bacterial Antigens - Final 07/15/20 00:00 Blood Culture - Preliminary Blood NEGATIVE TO DATE 07/15/20 17:43 Blood Culture - Preliminary Blood NEGATIVE TO DATE 07/15/20 00:00 MRSA Culture - Final Nose A&P Assessment and plan (1) COVID-19 virus infection: -Found to be positive for COVID-19 infection on 07/09 and initially seemed to be stable but over the past several days has had ongoing malaise, decreased appetite, nausea, ageusia, anosmia, increasing shortness of breath with decreasing activity, fever and generally been unable to take care of herself. -Isolation precautions -intermittently supplemental oxygen requirement, currently on RA, not oxygen dependent at baseline. Day 3 of remdesevir; with noted improvement, will treat for 3 days -continue steroids -Continue supportive care including vitamin C, zinc, inhaler treatments as needed, antitussives -negative influenza, MRSA, Legionella, bacterial antigens -blood culture prelim negative -Chest x-ray with noted interstitial thickening bilateral lung bases, worse on the right, repeat imaging in about 48 hours to monitor progression -Pulmonary toilet, incentive spirometry, flutter valve, RT to assess and treat -Telemetry monitoring -continue to monitor vital signs -Close monitoring of respiratory status -Home oxygen evaluation prior to discharge if still oxygen dependent -ABG with noted hypoxia -Elevated fibrinogen, d-dimer, ferritin, CRP, LDH. Continue to trend inflammatory markers -on AC with Eliquis due to increased risk of thrombosis Status: Acute (2) Hypoxia: -Secondary to acute COVID-19 infection as noted above; improving Status: Acute (3) Systemic lupus erythematosus arthritis: -Hold methotrexate, oral steroids Status: Chronic (4) Hypertension: -Currently hemodynamically stable, continue to monitor vital signs -continue oral antihypertensives Status: Chronic Qualifiers: Hypertension type: essential hypertension Qualified Code(s): I10 - Essential (primary) hypertension (5) Diabetes mellitus, type II: -A1c at goal-6.1 (06/2020) -Accu-Cheks, ISS, hypoglycemia precautions -Hold metformin Status: Chronic Qualifiers: Diabetes mellitus complication status: without complication Diabetes mellitus mcfp insulin use: without ergonomics consultant use Qualified Code(s): E11.9 - Type 2 diabetes mellitus without complications (6) Fibromyalgia: Status: Chronic (7) Mixed hyperlipidemia: -CPK wnl, on statin Status: Chronic Additional A&P Information -consistent carb diet as tolerated -developing neutropenia, monitor cell lines -GI ppx with famotidine -DVT ppx not needed as on Eliquis -mid line access placed due to poor peripheral access and difficulty with lab draws -Dispo: home, lives independently -Code status: FULL code -anticipate d/c tomorrow if continued improvement/stability Attestations Medical Necessity Statement*: Patient requires hospitalization for continued management of COVID-19 infection, with intermittent supplemental oxygen requirement, antiviral treatment. Time Spent in Patient Care: 16 - 35 minutes (>than 50% of time spent in counselling and/or direct pt care on unit) . Coding Level of Care Code Acute Turn Out Worker for Chg Fwd Exam Comprehensive Diagnoses COVID-19 virus infection U07.1 Hypoxia R09.02 Systemic lupus erythematosus arthritis M32.9 Hypertension I10 Hypertension type: essential hypertension Diabetes mellitus, type II E11.9 Diabetes mellitus complication status: without complication Diabetes mellitus ergonomics consultant insulin use: without ergonomics consultant use Fibromyalgia M79.7 Mixed hyperlipidemia E78.2
[2020-07-17] MEDS: pantoprazole DR 40 mg Tablet PO (18:03)
[2020-07-18] VITALS (15 sets, daily range): BP systolic 120–159; BP diastolic 54–89; PULSE 46–98; RESP 12–32; TEMP 36–36.6; O2SAT 91–97
[2020-07-18 07:12] LABS: C Reactive Protein 20.3 mg/L (0.0-4.9)
[2020-07-18 07:46] LABS: Ferritin 767 ng/mL (15-150)
[2020-07-18 07:49] LABS: Lactate Dehydrogenase 525 U/L (135-214)
[2020-07-18 08:12] LABS: Fibrinogen 422 mg/dL (174-498)
--- NOTE | 2020-07-18 08:22 | PM.DCS ---
Discharge Providers Date of Admission: 07/15/20 14:36 Date of Discharge: July 18, 2020 Attending Provider at Admission: Oneyda Kilpatrick MD Attending Provider at Discharge: Oneyda Kilpatrick MD Consults: None Primary Care Provider: CRYSTAL Johnson Diagnoses at Discharge Discharge Diagnosis (1) COVID-19 virus infection: Status: Acute Problem details: -Found to be positive for COVID-19 infection on 07/09 and initially seemed to be stable but over the past several days has had ongoing malaise, decreased appetite, nausea, ageusia, anosmia, increasing shortness of breath with decreasing activity, fever and generally been unable to take care of herself. -Isolation precautions -intermittently supplemental oxygen requirement, currently on RA, not oxygen dependent at baseline. Day 4 of remdesevir; with noted improvement, will treat for 3 days -continue steroids -Continue supportive care including vitamin C, zinc, inhaler treatments as needed, antitussives -negative influenza, MRSA, Legionella, bacterial antigens -blood culture prelim negative -Chest x-ray with noted interstitial thickening bilateral lung bases, worse on the right, repeat imaging shows improvement -Pulmonary toilet, incentive spirometry, flutter valve, RT to assess and treat -Telemetry monitoring -continue to monitor vital signs -Close monitoring of respiratory status -Home oxygen evaluation prior to discharge if still oxygen dependent -ABG with noted hypoxia -Elevated fibrinogen, d-dimer, ferritin, CRP, LDH. Continue to trend inflammatory markers -on AC with Eliquis due to increased risk of thrombosis (2) Hypoxia: Status: Acute Problem details: -Secondary to acute COVID-19 infection as noted above; improving (3) Systemic lupus erythematosus arthritis: Status: Chronic Problem details: -Hold methotrexate, resume oral steroids (4) Hypertension: Status: Chronic Problem details: -Currently hemodynamically stable, continue to monitor vital signs -continue oral antihypertensives Qualifiers: Hypertension type: essential hypertension Qualified Code(s): I10 - Essential (primary) hypertension (5) Diabetes mellitus, type II: Status: Chronic Problem details: -A1c at goal-6.1 (06/2020) -Accu-Cheks, ISS, hypoglycemia precautions -Hold metformin Qualifiers: Diabetes mellitus complication status: without complication 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 She initially required minimal supplemental oxygen support and was started on Remdesevir. She had a fairly quick turnaround with significant improvement including resolved hypoxia, no further need for supplemental oxygen within approximately 24 hours of initiation of antiviral treatment and other supportive care. She has received a total of 4 days worth of remdesevir and has been maintaining her saturation appropriately on RA x 48 hrs. Inflammatory markers have shown improvement as well and repeat imaging shows improvement also. She feels well enough to return home where she lives independently with family providing additional support as needed. She has been tolerating oral intake appropriately, ambulatory, hemodynamically stable with some noted episodes of bradycardia though asymptomatic, and she has been afebrile for over 48 hours. We have reviewed need to continue to monitor her symptoms on her return home, oxygen levels, temperature checks, continued self-isolation, maintaining social distancing and mask wearing, frequent handwashing. She is advised to seek medical attention should her symptoms worsen or should she redevelop fever, persistent hypoxia. She will need to follow-up with her primary care provider. Due to her history of SLE she is on methotrexate which is currently on hold due to acute infection. She is to follow-up with her primary care provider on decision to resume her treatment. Patient would prefer to update her family herself so I have deferred this to her. She has been covered with anticoagulation during her hospital stay due to noted increased risk of thrombosis with COVID-19 infection. Physical Exam Const: COMMON NORMALS: no acute distress, patient oriented x3 and alert GENERAL APPEARANCE: cooperative and comfortable NUTRITIONAL APPEARANCE: overweight ORIENTATION/CONSCIOUSNESS: Yes awake OTHER: -looks appropriate for age, very pleasant HENMT: COMMON NORMALS: normocephalic, atraumatic, hearing grossly normal bilaterally and moist oral mucous membranes HEAD & SCALP: normocephalic and atraumatic Eye: COMMON NORMALS: Equal, round and reactive pupils present, EOMs intact bilaterally and conjunctivae normal CONJUNCTIVA: Yes conjunctivae normal PUPIL: Yes Equal, round and reactive pupils present Neck/C-Spine: COMMON NORMALS: full ROM GENERAL: Yes normal visual inspection and Yes trachea midline Resp: COMMON NORMALS: normal respiratory effort, No retractions and No use of accessory muscles EFFORT & INSPECTION: Yes able to speak in complete sentences, Yes symmetric chest movement and No tachypneic AUSCULTATION: rhonchi OTHER: -on RA, symmetrical air entry bilaterally; maintaining her saturation appropriately on room air Cardio: COMMON NORMALS: regular rate, regular rhythm, S1 normal heart sound present, S2 normal heart sound present and No murmurs present (Cardio) RATE: regular rate RHYTHM: regular rhythm HEART SOUNDS: S1 normal heart sound present and S2 normal heart sound present GI: COMMON NORMALS: Normal to inspection, nondistended, normoactive bowel sounds present, Soft to palpation and non-tender INSPECTION: Yes central obesity PALPATION: Yes Soft to palpation Extremity: COMMON NORMALS: normal to inspection, full ROM and no clubbing, cyanosis or edema; negative for no pedal edema Neuro: COMMON NORMALS: patient oriented x3, moves all extremities, no focal motor deficits, no sensory deficits noted and gait normal SENSORIUM/ORIENTATION: Yes alert Psych: COMMON NORMALS: mental status grossly normal, Normal thought process present, cooperative, normal affect and speech normal SPEECH: Yes normal speech THOUGHT PROCESS: Normal thought process present Skin: COMMON NORMALS: no rashes or lesions noted, no jaundice, no petechiae and no mottling GENERAL SKIN EXAM: no rashes or lesions noted Discharge Data Data Completed and Pending: Completed Studies During Hospitalization Category Date Time Status XR chest 1V yolanda ble [id number] Routine Exams 07/16/20 16:59 Completed XR chest 1V yolanda ble [id number] Stat Exams 07/15/20 10:12 Completed Pending at discharge Category Date Time Status Blood Culture Sta t Lab 07/15/20 00:00 Results Labs from last 24 hours 07/18/20 07/18/20 07/18/20 05:18 05:18 05:18 Fibrinogen 422 D-Dimer 0.70 H Ferritin 767 H Lactate Dehydrogen ase 525 H C-Reactive Protein 20.3 H 07/17/20 04:05 Fibrinogen 462 D-Dimer Ferritin Lactate Dehydrogen ase C-Reactive Protein Vitals: Last Vital Signs Temp 97.8 F 07/18/20 08:00 Pulse 57 L 07/18/20 08:08 Resp 18 07/18/20 08:08 BP 131/59 10/09/20 04:00 Pulse Ox 96 07/18/20 08:08 Discharge Plan Discharge Patient Disposition: Home Condition: Stable Prescriptions: New sennosides-docusate sodium 8.6-50 mg Tablet 1 tab PO BID Qty: 60 RF: 0 Eliquis 5 mg Tablet 5 mg PO BID Qty: 28 RF: 0 pantoprazole 40 mg Tablet,Delayed Release (Dr/Ec) 40 mg PO Q24H Qty: 30 RF: 0 Continued metformin 850 mg tablet 425 mg PO DAILY RF: 0 metoprolol tartrate 50 mg tablet 50 mg PO BID Qty: 60 RF: 5 pravastatin 10 mg tablet 10 mg PO DAILY Qty: 30 RF: 2 trazodone 150 mg tablet 150 mg PO DAILY Qty: 30 RF: 0 ondansetron HCl [Zofran] 4 mg tablet 4 mg PO Q8H PRN (Reason: nausea and vomiting) Qty: 15 RF: 0 potassium chloride 10 mEq capsule, extended release 10 meq PO DAILY RF: 0 ProAir HFA 90 mcg/actuation HFA aerosol inhaler 1 - 2 inh INHALATION Q6H PRN (Reason: shortness of breath or wheezing) RF: 0 Multiple Vitamins Tablet 1 tab PO DAILY RF: 0 Vitamin B-12 1,000 mcg Tablet 1,000 mcg PO DAILY RF: 0 Tylenol Extra Strength 500 mg Tablet 500 - 1,000 mg PO PRN RF: 0 Calcium 600 600 mg calcium (1,500 mg) Tablet 600 mg PO DAILY RF: 0 Vitamin C 500 mg Tablet 500 mg PO DAILY RF: 0 iron 325 mg (65 mg iron) Tablet 650 mg PO DAILY RF: 0 folic acid 800 mcg Tablet 0.8 mg PO DAILY RF: 0 Vitamin D3 25 mcg (1,000 unit) Tablet,Chewable 25 mcg PO DAILY RF: 0 Equate Headache Relief 2 tab PO BID RF: 0 Changed prednisone 10 mg tablet See Rx Instructions .ROUTE .COMPLEX Qty: 60 RF: 0 Held methotrexate sodium 2.5 mg tablet See Rx Instructions .ROUTE .COMPLEX RF: 0 Hold Instructions: Please hold until follow up with primary care provider. Discontinued hydrochlorothiazide 25 mg tablet See Rx Instructions .ROUTE .COMPLEX Qty: 45 RF: 0 azithromycin [Zithromax Z-Willie] 250 mg tablet See Rx Instructions PO .COMPLEX Qty: 6 RF: 0 Discharge Orders: Discharge Order (Routine); Ordered 07/18/20 Ordered By: Oneyda Kilpatrick Referrals: Ralph,ROBIN, PNEUMATIC TUBE FITTER [Primary Care Provider] - 4-7 days (Post-hospital discharge follow up. ) Discharge Diet: Low Salt Discharge Activity: Increase activity as tolerated Discharge Attestations Time Spent in Discharge Care*: greater than 30 min Specific Discharge Activities: Specific discharge activities: educating patient, discussing with case investigator/social workers/dc planners, documenting/other paperwork and evaluating patient/reviewing data Status at Discharge: Cognitive status at discharge: cognitively intact, Behavioral status at discharge: cooperative and independent in ADL's, Functional status at discharge: independent ambulation Overall status at discharge: patient is progressing back to baseline Quality Metrics Clinical Quality Measures During this hospital stay, did patient experience: None Coding Level of Care Code Acute Rn Assessment for g Fwd Exam Comprehensive Diagnoses COVID-19 virus infection U07.1 Hypoxia R09.02 Systemic lupus erythematosus arthritis M32.9 Hypertension I10 Hypertension type: essential hypertension Diabetes mellitus, type II E11.9 Diabetes mellitus complication status: without complication 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
[2020-07-18] MEDS: calcium carb-vit d 600mg/400unit 1 Tablet 1 EACH PO (09:25)
[2020-07-18] MEDS: ferrous sulfate EC 325 mg Tablet PO (09:25)
[2020-07-18] MEDS: cyanocobalamin 1,000 mcg Tablet 1000 MCG PO (09:25)
[2020-07-18] MEDS: multivitamin therapeutic Tablet 1 TAB PO (09:33)
[2020-07-18] MEDS: potassium chloride ER 10 mEq Tablet 20 MEQ PO (09:33)
[2020-07-18] MEDS: ascorbic acid 500 mg Tablet PO (09:33)
[2020-07-18] MEDS: atorvastatin 40 mg Tablet 20 MG PO (09:34)
[2020-07-18] MEDS: apixaban 5 mg Tablet PO (09:34)
[2020-07-18] MEDS: sennosides-docusate Tablet 1 TAB PO (09:34)
[2020-07-18] MEDS: metoprolol tartrate 50 mg Tablet PO (09:34)
[2020-07-18] MEDS: cholecalciferol (vitamin D3) 1,000 unit Tablet 1000 UNIT PO (09:34)
[2020-07-18] MEDS: dexamethasone 4 mg/mL INJ 6 MG IVP (09:34)
--- NOTE | 2020-07-18 12:18 | PC.SOCIAL ---
IMM Update Pg. 2 off IMM given to nurse Asia LPN to explain to patient.
--- NOTE | 2020-07-18 13:33 | PC.NURSE ---
PICC line removed per order MD Kilpatrick. Patient tolerated well. Pressure held with gauze and tight tape. No bleeding noted.
--- NOTE | 2020-07-22 14:41 | PC.SOCIAL ---
Spoke with patient post discharge and she is doing well overall. Only complaint is ongoing weakness. She is ambulatory but has to take more breaks due to weakness. She is not cooking much due to being worn out but her kids are dropping off food for her. We reviewed her medications. She is not taking the Eliquis due to cost. She tried taking Senna yesterday but indicates resulting in severe cramping. She will not be taking anymore of those. She is having bowel movements. She is taking the Protonix as well. She indicates did not realize she should be holding the 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 and has been taking it however will not take more until she discusses with PCP on 07/25. PCP should be calling her this day for phone televisit follow up. We discussed that she should not be taking the Azithromycin which she indicates has not been taking. We also discussed the HCTZ was stopped however, she has continued taking this one. She will hold it for now until further discussed with PCP as well. We discussed to maintin social distancing and wearing mask if need to go out. We discussed good hand hygiene and sanitation within the home. All of which she verbalized understanding. Kids bring her what is needed per her report. We discussed flu vaccine and she will try and get this once feeling better and verified she has had a PNA vaccine in last 5 years. Patient is not on supplemental O2 and did not require any HH services at [place]. She has no questions or concerns. Will send out plasma education in case patient is interested as she improves.
== END 2020-07-18 14:23 | disposition home or self-care (01) | DRG 178 ==
LOC: ER 10:52 → ICU 17:32
PROVIDERS: Family Medicine; Admitting Provider Family Medicine; PCP Nurse Practitioner Family; Visit Provider Family Medicine
DX: U07.1 COVID-19 (principal); E87.1 Hypo-osmolality and hyponatremia; E11.9 Type 2 diabetes mellitus without complications; Z79.84 Long term (current) use of oral hypoglycemic drugs; M32.9 Systemic lupus erythematosus, unspecified; M19.90 Unspecified osteoarthritis, unspecified site; E78.2 Mixed hyperlipidemia; M79.7 Fibromyalgia; R09.02 Hypoxemia; D64.9 Anemia, unspecified; E87.6 Hypokalemia
CPT/HCPCS: 12345; 36415; 36569; 71045; 80053; 82550; 82728; 82803; 83605; 83615; 84145; 85025; 85378; 85384; 86140; 86403; 87040; 87070; 87205; 87449; 87641; 87804; 94664; 96375; 97116; 97161; 99284; J1100; J2405; J3490

== ENCOUNTER → 2020-08-11 10:09 | Outpatient (BNVA) | payer MEDICARE, SELFPAY | PROVIDERS: PCP Nurse Practitioner Family; Visit Provider Nurse Practitioner Family | DX: D64.9 Anemia, unspecified (principal); I10 Essential (primary) hypertension; R39.9 Unspecified symptoms and signs involving the genitourinary system | CPT/HCPCS: 80053; 82728; 85025 ==

== ENCOUNTER 2020-11-07 13:17 | Outpatient (CLI) | payer MEDICARE, SELFPAY ==
--- NOTE | 2020-11-07 13:21 | MM_ITS ---
WS: [id number] BILATERAL DIGITAL SCREENING MAMMOGRAPHY WITH CAD CLINICAL INFORMATION: SCREENING HISTORY: Screening mammogram. No current complaints. COMPARISON: TECHNIQUE: Bilateral CC and MLO views. FINDINGS: Scattered fibroglandular densities bilaterally. No suspicious focal mass, asymmetry, calcifications, or architectural distortion. No evidence of malignancy. Vascular calcification. Punctate calcificatio n. MM/[id number] IMPRESSION: BI-RADS: 2-Benign FOLLOW UP: 1 Year Follow-up Recommend return to annual screening mammography.
== END 2020-11-07 13:18 | disposition home or self-care (01) ==
LOC: RADSHAW 13:20
PROVIDERS: PCP Nurse Practitioner Family; Visit Provider Nurse Practitioner Family
DX: Z12.31 Encounter for screening mammogram for malignant neoplasm of breast (principal)
CPT/HCPCS: 77067

== ENCOUNTER → 2020-12-05 11:44 | Outpatient (BNVA) | payer MEDICARE, SELFPAY | PROVIDERS: PCP Nurse Practitioner Family; Visit Provider Nurse Practitioner Family | DX: I10 Essential (primary) hypertension (principal); E55.9 Vitamin D deficiency, unspecified; Z79.899 Other long term (current) drug therapy | CPT/HCPCS: 80053; 80061; 81003; 82306; 83036; 84443; 85025 ==

== ENCOUNTER → 2021-07-02 11:30 | Outpatient (BNVA) | payer MEDICARE, SELFPAY | PROVIDERS: PCP Nurse Practitioner Family; Visit Provider Nurse Practitioner Family | DX: D64.89 Other specified anemias (principal) | CPT/HCPCS: 80053; 81003; 82746; 85025 ==

== ENCOUNTER → 2021-07-17 11:28 | Outpatient (BNVA) | payer MEDICARE, SELFPAY | PROVIDERS: PCP Nurse Practitioner Family; Visit Provider Family Medicine | DX: E11.9 Type 2 diabetes mellitus without complications (principal); I10 Essential (primary) hypertension | CPT/HCPCS: 80053; 83036; 90686 ==

== ENCOUNTER → 2021-11-10 13:32 | Outpatient (BNVA) | payer MEDICARE, SELFPAY | PROVIDERS: PCP Nurse Practitioner Family; Visit Provider Nurse Practitioner Family | DX: Z79.899 Other long term (current) drug therapy (principal); M19.90 Unspecified osteoarthritis, unspecified site; H61.91 Disorder of right external ear, unspecified | CPT/HCPCS: 85025 ==

== ENCOUNTER 2022-02-04 14:06 | Outpatient (CLI) | payer MEDICARE, SELFPAY ==
--- NOTE | 2022-02-04 14:19 | MM_ITS ---
WS: [id number] BILATERAL 3D TOMOSYNTHESIS DIGITAL SCREENING MAMMOGRAPHY WITH CAD CLINICAL INFORMATION: SCREENING HISTORY: Screening mammogram. Sebaceous cyst under RIGHT arm COMPARISON: November 07, 2020 TECHNIQUE: Bilateral CC and MLO views. FINDINGS: Scattered fibroglandular densities bilaterally. Vascular calcification. Punctate calcifications. No s uspicious focal mass, asymmetry, calcifications, or architectural distortion. No evidence of malignan cy. MM/[id number] IMPRESSION: BI-RADS: 2-Benign FOLLOW UP: 1 Year Follow-up Recommend return to annual screening mammography.
== END 2022-02-04 14:07 | disposition home or self-care (01) ==
LOC: RADSHAW 14:08
PROVIDERS: PCP Nurse Practitioner; Visit Provider Nurse Practitioner Family
DX: Z12.31 Encounter for screening mammogram for malignant neoplasm of breast (principal)
CPT/HCPCS: 77063; 77067

== ENCOUNTER → 2022-11-17 09:26 | Outpatient (BNVA) | payer MEDICARE, SELFPAY | PROVIDERS: PCP Nurse Practitioner; Visit Provider Nurse Practitioner | DX: I10 Essential (primary) hypertension (principal); E11.9 Type 2 diabetes mellitus without complications; Z79.899 Other long term (current) drug therapy | CPT/HCPCS: 80053; 80061; 83036; 84443; 85025 ==

== ENCOUNTER 2023-02-17 14:46 | Outpatient (CLI) | payer MEDICARE, SELFPAY ==
--- NOTE | 2023-02-17 14:55 | MM_ITS ---
WS: [id number] Bilateral screening 3D tomosynthesis digital mammogram, 02/17/2023 Clinical Data: SCREENING Comparison: 02/04/2022, 11/07/2020, 09/27/2019, 09/07/2018, 08/17/2018, 08/15/2017, 08/10/2016, 08/15/2015, 05/31/2014, 05/11/2013, 09/20/2008, 08/24/2007, 08/25/2006. Findings: The breast parenchymal pattern shows fibroglandular tissue. No spiculated masses or clustered calcifi cations are seen. There are no secondary signs of carcinoma. There are calcifications in the [place] sm all vessels. MM/[id number] Impression: 1. Negative bilateral mammogram unchanged. 2. Recommend annual screening mammograms. BIRADS: 1-Negative FOLLOW UP: 1 Year Follow-up The CAD railroad car checker was used.
== END 2023-02-17 14:47 | disposition home or self-care (01) ==
LOC: RAD 14:50
PROVIDERS: PCP Nurse Practitioner; Visit Provider Nurse Practitioner
DX: Z12.31 Encounter for screening mammogram for malignant neoplasm of breast (principal)
CPT/HCPCS: 77063; 77067

== ENCOUNTER → 2023-05-30 10:59 | Outpatient (BNVA) | payer MEDICARE, SELFPAY | PROVIDERS: PCP Nurse Practitioner; Visit Provider Nurse Practitioner Family | DX: L57.0 Actinic keratosis (principal); L82.1 Other seborrheic keratosis; L81.4 Other melanin hyperpigmentation; L57.8 Other skin changes due to chronic exposure to nonionizing radiation | CPT/HCPCS: 17000; 17003; 99213 ==

== ENCOUNTER → 2023-09-15 10:50 | Outpatient (BNVA) | payer MEDICARE, SELFPAY | PROVIDERS: PCP Nurse Practitioner; Visit Provider Nurse Practitioner Family | DX: E55.9 Vitamin D deficiency, unspecified (principal); E11.9 Type 2 diabetes mellitus without complications; E87.6 Hypokalemia; D64.9 Anemia, unspecified; E78.5 Hyperlipidemia, unspecified; I10 Essential (primary) hypertension | CPT/HCPCS: 80053; 80061; 82306; 82728; 83036; 83550; 84443; 85025 ==

== ENCOUNTER 2023-09-27 06:00 | Outpatient (RCR) | payer MEDICARE, SELFPAY | END 2023-10-09 23:59 | disposition home or self-care (01) | LOC: WPT 06:00 | PROVIDERS: PCP Nurse Practitioner; Visit Provider Nurse Practitioner Family | DX: M54.50 Low back pain, unspecified (principal) | CPT/HCPCS: 97110; 97112; 97161; 97530 ==

== ENCOUNTER → 2023-09-29 11:15 | Outpatient (BNVA) | payer MEDICARE, SELFPAY | PROVIDERS: PCP Nurse Practitioner; Visit Provider Nurse Practitioner Family | DX: L57.0 Actinic keratosis (principal); L82.1 Other seborrheic keratosis; L81.4 Other melanin hyperpigmentation; L57.8 Other skin changes due to chronic exposure to nonionizing radiation; L91.8 Other hypertrophic disorders of the skin; L21.8 Other seborrheic dermatitis | CPT/HCPCS: 11200; 17000; 99214 ==

== ENCOUNTER 2023-10-10 06:00 | Outpatient (RCR) | payer MEDICARE, SELFPAY | END 2023-11-09 23:59 | disposition home or self-care (01) | LOC: WPT 06:00 | PROVIDERS: PCP Nurse Practitioner; Visit Provider Nurse Practitioner Family | DX: M54.50 Low back pain, unspecified (principal) | CPT/HCPCS: 97110; 97112; 97530 ==

== ENCOUNTER → 2023-11-30 13:04 | Outpatient (BNVA) | payer MEDICARE, SELFPAY | PROVIDERS: PCP Nurse Practitioner Family; Referring Provider Nurse Practitioner Family; Visit Provider Specialist | DX: M17.11 Unilateral primary osteoarthritis, right knee; M21.061 Valgus deformity, not elsewhere classified, right knee; Z01.818 Encounter for other preprocedural examination | CPT/HCPCS: 36415; 73560; 73565; 80053; 81001; 85025; 99204 ==

== ENCOUNTER 2023-12-28 13:25 | Outpatient (CLI) | payer MEDICARE, SELFPAY ==
--- NOTE | 2023-12-28 13:30 | CT_ITS ---
WS: [id number] CT RIGHT KNEE, NONCONTRAST ANDREW TECHNIQUE: Noncontrast CT of the RIGHT knee to include the RIGHT hip and ankle. CLINICAL INFORMATION: for surgery planning DLP: 845.[address] scans at [facility] use at least one of these dose optimization techniques: automated e xposure control; mA and/or kV adjustment per patient size (includes targeted exams where dose is matc hed to clinical indication); or iterative reconstruction. FINDINGS: Intramedullary devin fixation RIGHT femur. Advanced tricompartmental arthritis RIGHT knee worse in the lateral joint compartment with [id number] articulation. Hypertrophic patella. Vascular calcificatio n. Osteopenia. Tiny suprapatellar effusion. Sigmoid diverticulosis. IMPRESSION: Images obtained for preoperative purposes.
== END 2023-12-28 13:26 | disposition home or self-care (01) ==
LOC: RAD 13:25
PROVIDERS: PCP Nurse Practitioner Family; Visit Provider Specialist
DX: M17.11 Unilateral primary osteoarthritis, right knee (principal)
CPT/HCPCS: 73700

== ENCOUNTER 2024-01-11 11:54 | Outpatient (CLI) | payer MEDICARE, SELFPAY ==
--- NOTE | 2024-01-11 12:30 | USCV_ITS ---
Sia Santillan Age: 83 Gender: F : 1940 Exam Date: 01/11/2024 12:08 Ordering Phys: ROBIN Rosas APRN Technologist: Joyce Chapa Exam Location: [facility] [place] Indication: DIZZINESS/MURMUR BP: 136 / 74 HR: 55 Rhythm: Sinus Technical Quality: Adequate MEASUREMENTS (Male / Female) Normal Values 2D ECHO LV Diastolic Diameter PLAX 4.4 cm 4.2 - 5.9 / 3.9 - 5.3 cm IVS Diastolic Thickness 1.5 cm 0.6 - 1.0 / 0.6 - 0.9 cm IVS Systolic Thickness 1.8 cm LVPW Diastolic Thickness 1.6 cm 0.6 - 1.0 / 0.6 - 0.9 cm LVPW Systolic Thickness 2.6 cm LVOT Diameter 2.0 cm LV Ejection Fraction 2D Teich 76.4 % LV Ejection Fraction MOD 2C 78.2 % LV Ejection Fraction 2C AL 81.0 % LA Diameter 2.9 cm RA Systolic Volume 4C AL 34.1 ml RA Systolic Volume 4C MOD 33.2 ml Aorta at Sinotubular Diameter 2.9 cm IVC Diameter 1.1 cm M-MODE LA Ao Ratio MM 1.1 AV Cusp Separation MM 1.0 cm DOPPLER AV Peak Velocity 195.3 cm/s LVOT Peak Velocity 99.0 cm/s AV Area Cont Eq vti 1.7 cm squared AV Area Cont Eq pk 1.6 cm squared MV Peak Velocity 120.0 cm/s MV Area PHT 2.1 cm squared Mitral E to A Ratio 0.7 TV Peak Velocity 214.5 cm/s TR Peak Velocity 222.5 cm/s TR Peak Gradient 19.8 mmHg TR Mean Velocity 197.0 cm/s TR Mean Gradient 16.1 mmHg TR Velocity Time Integral 70.8 cm TV Peak E Velocity 33.0 cm/s Right Atrial Pressure 3.0 mmHg Pulmonary Artery Systolic Pressu 22.8 mmHg PV Peak Velocity 98.0 cm/s FINDINGS Left Ventricle Normal left ventricular size and systolic function, EF 76%. Moderate left ventricular hypertrophy. No regional wall motion abnormalities. Grade I/IV diastolic dysfunction (abnormal relaxation filling pattern), normal to mildly elevated filling pressures. Right Ventricle The right ventricle is normal in size and function. Right Atrium The right atrium is normal in size. Left Atrium Mildly increased left atrial size. Mitral Valve Moderate mitral annular calcification. Mild mitral valve regurgitation. Aortic Valve Aortic valve sclerosis. Tricuspid Valve Trace to mild tricuspid valve regurgitation. Estimated pulmonary artery peak systolic pressure 23 mmHg Pulmonic Valve Mild pulmonary valve regurgitation. Pericardium No pericardial effusion. Aorta Normal aortic annulus size. IVC Normal inferior vena cava. CONCLUSIONS Normal left ventricular size and systolic function, EF 76%. Moderate left ventricular hypertrophy. No regional wall motion abnormalities. Grade I/IV diastolic dysfunction (abnormal relaxation filling pattern), normal to mildly elevated filling pressures. Mildly increased left atrial size. Moderate mitral annular calcification. Mild mitral valve regurgitation. Aortic valve sclerosis. Trace to mild tricuspid valve regurgitation. Estimated pulmonary artery peak systolic pressure 23 mmHg. Mild pulmonary valve regurgitation. No similar previous studies are available for comparison Dr Lucie Mitchell MD [facility] (Electronically Signed) Final Date: 12 January 2024 09:46 S
== END 2024-01-11 11:55 | disposition home or self-care (01) ==
LOC: RAD 11:54
PROVIDERS: PCP Nurse Practitioner Family; Visit Provider Nurse Practitioner Family
DX: R42 Dizziness and giddiness (principal); R53.83 Other fatigue; R01.1 Cardiac murmur, unspecified; I51.7 Cardiomegaly; I34.0 Nonrheumatic mitral (valve) insufficiency; I70.0 Atherosclerosis of aorta
CPT/HCPCS: 80053; 81003; 85025; 93005; 93306

== ENCOUNTER 2024-01-24 10:53 | Observation (INO) | payer MEDICARE, SELFPAY ==
[2024-01-24] VITALS (16 sets, daily range): BP systolic 119–213; BP diastolic 49–109; PULSE 57–83; RESP 16–20; TEMP 36.2–36.5; O2SAT 94–100; BMI 27.3
[2024-01-24] MEDS: CELEcoxib 200 mg Capsule 400 MG PO (06:47)
[2024-01-24] MEDS: gabapentin 300 mg Capsule PO (06:47)
--- NOTE | 2024-01-24 07:01 | P.HPUD_ITS ---
Surgery/Procedure H&P Update DATE OF PROCEDURE: January 24, 2024 DATE H&P PERFORMED: 01/11/24 H&P UPDATE INFORMATION: I have reviewed H&P completed within last 30 days, I have examined patient prior to procedure, No changes to prior documentation and H&P is in [facility] [place] on date indicated PLANNED PROCEDURE: Operation Date: 01/24/24 08:00 Proposed Procedures p Jacob Robot Total Knee Arthroplasty(Right) - Lexus Alvarez MD Related Problem List Diagnoses (1) Arthritis of knee: (2) Valgus deformity, not elsewhere classified, right knee:
[2024-01-24 07:06] LABS: Glucose Point of Care 85 mg/dL (70-110)
[2024-01-24] MEDS: acetaminophen 1,000 MG/100 ML PIGGYBACK 400 MG IV ×3 (07:25→19:54)
[2024-01-24] MEDS: sodium chloride 0.9% 1,000 ML 30 ML IV (07:25)
[2024-01-24] MEDS: scopolamine 1.5 Patch 1 PATCH TRANSDERMA (07:26)
--- NOTE | 2024-01-24 07:34 | P.ANESASSM_ITS ---
Pre-Anesthetic Assessment Height/Weight: Height 1.52 m Weight 63.503 kg Temp Pulse Resp BP Pulse Ox O2 Del Method 97.5 F L 57 L 18 213/109 100 Room Air 01/24/24 06:35 01/24/24 06:35 01/24/24 06:35 01/24/24 06:35 01/24/24 06:35 01/24/24 06:39 Operation Date: 01/24/24 08:00 Proposed Procedures p Jacob Robot Total Knee Arthroplasty(Right) - Lexus Alvarez MD Last intake: Intake Last Liquid Date 01/23/24 Last Liquid Time 20:30 Last Solid Date 01/23/24 Last Solid Time 20:30 Exam alert, oriented x 3, clear to auscultation bilaterally and regular rate & rhythm Airway Submandibular: within normal limits Cervical ROM: within normal limits Mallampati: Class I Pulmonary None reported CV/HEM Hypertension Metabolic Diabetes Mellitus Anesthetic Plan ASA status: 3 Anesthesia: General Other: PONV successfully treated in past with iV meds and scop patch. Medications/Allergies Home Medications Medication Instructions Recorded Confirmed Last Taken Type Equate Headache Relief 2 tab PO BID 07/15/20 01/23/24 01/21/24 History ascorbic acid (vitamin C) 500 mg 500 mg PO DAILY 07/15/20 01/23/24 01/23/24 History tablet (Vitamin C) calcium carbonate (Calcium 600) 600 mg PO DAILY 07/15/20 01/23/24 01/23/24 History cholecalciferol (vitamin D3) 25 25 mcg PO DAILY 07/15/20 01/23/24 01/23/24 History mcg (1,000 unit) chewable tablet (Vitamin D3) ferrous sulfate 325 mg (65 mg 650 mg PO DAILY 07/15/20 01/23/24 01/23/24 History iron) tablet (iron) folic acid 800 mcg tablet 0.8 mg PO DAILY 07/15/20 01/23/24 01/23/24 History multivitamin (Multiple Vitamins 1 tab PO DAILY 07/15/20 01/23/24 01/23/24 History tablet) cyanocobalamin (vitamin B-12) 1,000 mcg PO DAILY 10/29/20 01/23/24 01/23/24 History 1,000 mcg tablet (Vitamin B-12) vitamin E succinate 67 mg (100 67 mg PO DAILY 01/11/24 01/23/24 01/23/24 History unit) tablet methotrexate sodium 2.5 mg tablet See Rx Instructions .Route 01/16/24 01/23/24 01/23/24 Rx .COMPLEX #48 tabs hydrochlorothiazide 25 mg tablet 25 mg PO DAILY 01/23/24 01/23/24 01/23/24 History metformin 850 mg tablet 250 mg PO DAILY 01/23/24 01/23/24 01/23/24 History metoprolol tartrate 50 mg tablet 50 mg PO BID 01/23/24 01/24/24 01/24/24 04:30 History potassium chloride 20 mEq 20 meq PO DAILY 01/23/24 01/23/24 01/23/24 History tablet,extended release(part/cryst) (Klor-Con M) pravastatin 10 mg tablet 10 mg PO DAILY 01/23/24 01/23/24 01/23/24 History prednisone 10 mg tablet 10 mg PO DAILY 01/23/24 01/23/24 01/23/24 History trazodone 150 mg tablet 150 mg PO BEDTIME 01/23/24 01/23/24 01/23/24 History Allergies Allergy/AdvReac Type Severity Reaction Status Date / Time codeine Allergy Intermediate unknown Verified 01/16/24 09:38 hydrocodone Allergy Intermediate nausea Verified 01/16/24 09:38 ibuprofen Allergy Intermediate hematochezi Verified 01/16/24 09:38 a moxifloxacin [From Avelox] Allergy Intermediate unknown Verified 01/16/24 09:38 sulfamethoxazole [Bactrim] Allergy Intermediate unknown Verified 01/16/24 09:38 tramadol Allergy Intermediate nausea, Verified 01/16/24 09:38 headache trimethoprim [Bactrim] Allergy Intermediate unknown Verified 01/16/24 09:38 Current Medications Generic Name Dose Route Start Last Admin Trade Name Freq PRN Reason Stop Dose Admin Sodium Chloride 1,000 mls @ 30 mls/hr 01/24/24 06:30 01/24/24 07:25 Sodium Chloride 0.9% IV 01/25/24 06:29 30 mls/hr .Q24H ASIM Administration Scopolamine 1 patch 01/24/24 06:26 01/24/24 07:26 Scopolamine 1.5 Patch TRANSDERMA 1 patch ONCE PRN Administration Nausea/ Vomiting Prophylaxis PFSH Anesthesia Medical History Murmur Fatigue Dizziness Vertigo Arthritis of knee Generalized muscle weakness Excessive cerumen in ear canal Generalized weakness Low back pain Skin lesion of right ear 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, 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, 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 Arthritis Skin lesion Hypokalemia Vitamin D deficiency Mixed hyperlipidemia -CPK wnl, on statin Fibromyalgia Diabetes mellitus, type II -A1c at goal-6.1 (06/2020) -Accu-Cheks, ISS, hypoglycemia precautions -Hold metformin Hypertension -Currently hemodynamically stable, continue to monitor vital signs -continue oral antihypertensives Anemia Systemic lupus erythematosus arthritis Surgical History Status post total left knee replacement Family History Other Anemia Social History Smoking and tobacco/nicotine status: former use of tobacco/nicotine Second hand smoke exposure: No Alcohol intake: never Substance/Drug Use: never Lives independently: Yes Marital status: / Data Anesthesia Cardiac Studies: Echocardiogram 01/11/24
[2024-01-24] MEDS: ceFAZolin 2,000 MG in sodium chloride 0.9% (plus) 50 ML 100 MG IV ×3 (08:12→23:34)
[2024-01-24] MEDS: tranexamic acid 1,000 mg/10mL SDV 1000 MG IV (08:31)
[2024-01-24] MEDS: vancomycin 1,000 MG SDV 1000 MG XX (09:37)
[2024-01-24] MEDS: BUPivacaine liposome 13.3 mg/mL SDV 10 mL 266 MG INFILTRATI (09:38)
[2024-01-24] MEDS: ceFAZolin 1,000 mg SDV 2000 MG IRRIGATION (09:38)
[2024-01-24] MEDS: BUPivacaine 0.5% INJ 30 mL 20 ML XX (09:38)
[2024-01-24] MEDS: ceFAZolin 1,000 mg SDV 3000 MG IRRIGATION (09:40)
--- NOTE | 2024-01-24 11:04 | P.OP_ITS ---
Operative Report Date of procedure: January 24, 2024 Pre-op diagnosis: Right knee osteoarthritis with valgus deformity Post-op diagnosis: Right knee osteoarthritis with valgus deformity Post-op findings: Severe valgus deformity with large osteophytes and very osteopenic bone Procedure done: Right cemented total knee arthroplasty with Jacob guidance Implants: The Chip total knee system with a size 3 triathlon cemented cruciate retaining femur right, a triathlon titanium tibial component size 4 cemented, a triathlon X3 tibial bearing CS insert size 4 X 14 mm and a beaded triathlon titanium asymmetric patella size 29 x 9 mm Specimens removed/disposition: Bone, disposed of Pathology: None Surgeon: Lexus Alvarez MD Project Accountant: [facility] operating room technicians Anesthesia: General (With adductor block, ASA 3) Estimated blood loss (mL): 70 Tourniquet time (min): 0 (Not utilized) IV fluids (mL): 700 Urine output (mL): 300 Complications: None Findings: Severe valgus deformity with severe osteoarthritis right knee Condition: stable Disposition: PACU (The to floor for postoperative rehabilitation and pain management) Brief History: This 83-year-old woman presented to the office for evaluation of right knee pain. Previously, she had undergone left total knee arthroplasty for severe valgus deformity and osteoarthritis. She did well following this procedure, and she presented with complaints of similar findings to her opposite right knee. She had had pain for several years which have been worsening. The pain was aggravated by standing and walking. Her knee was giving out causing her to almost fall. She underwent conservative measures without improvement. She wished to proceed with right total knee arthroplasty. Risks and complications were discussed with her. Consents were signed and questions were answered in the office. Procedure: The patient was brought to the operating theater, and after undergoing general anesthesia, intubated, ASA 3 was administered, with supplemental adductor canal block. The right lower extremity was prepped with Dura-Prep and draped in usual fashion following placement of a tourniquet high on the leg. The leg was then draped free.? Tourniquet was not elevated during the case.? A surgical pause was performed, and at the time of the surgical pause, we confirmed the site and side of surgery. Additionally, we confirmed the appropriate and timely administration of preoperative antibiotics, Ancef 2 g.? The availability of equipment was confirmed, and the patient's identity was verbalized as well. Following the surgical pause, an incision was made centering over the patella continuing proximally and distally as necessary to allow access to the knee joint. Dissection continued through skin and soft tissues using a scalpel. Hemostasis was obtained using electrocautery. The skin incision was followed by a median parapatellar arthrotomy. The leg was extended and the patella was able to be displaced laterally.? Appropriate arrays and markers were placed in appropriate position for use of the Jacob.? Preoperative planning had been accomplished and was discussed in detail with the [facility] mortician supplies sales representative.? Intraoperative mapping of the femur and tibia was accomplished after the arrays were placed.? Internal markers were also placed.? Once we had accomplished the Jacob mapping, we began the appropriate resections for placement of the prosthesis.? The plan was for a cruciate retaining right total knee arthroplasty. Once appropriate mapping had been accomplished retraction was established using manual retraction by surgical technicians and also the Jacob leg positioner and retractors.? The knee was evaluated.? There was significant osteoarthritic change as well as a severe valgus deformity.? Appropriate bone resection was accomplished using the Jacob.? The femur was sized to a size 3.? Following femoral cuts, attention was directed to the tibia.? Osteophytes were removed prior to this portion of the procedure.? We had performed a minimal medial release at the beginning of the procedure to allow for placement of the array.? Proximal tibia was evaluated, and it was felt that appropriate size for the tibia was a size 4.? Tray was noted to fit nicely with good coverage.? Rim fit was accomplished with the size 4. A trial reduction was accomplished after osteophytes have been removed as well as the medial and lateral menisci.? We had removed the anterior cruciate ligament at the beginning of the case and preserved the posterior cruciate ligament.? Trial reduction was accomplished with a size 3 femoral cruciate retaining component, a size 4 tibial tray and a size 4 CS tibial bearing insert which was 9 mm.? Sequential increase in size of the tibial insert resulted in a size 4 CS by 14 mm insert to give appropriate alignment as well as flexion and extension. Alignment was felt to be appropriate as well.? Trial components were removed after the femur had been drilled.? Prior to removal of the tibial tray which had been pinned in position with appropriate rotation as determined by the Jacob plan, we drilled and broached the tibia. Due to the quality of the patient's bone, plans were made for cementing both the femur and the tibia as well as the patella.? All trial components were removed, and the wound was irrigated.? Plans were made for insertion of the prosthetic components.? Prior to this, the patella was manually prepared.? After resection of the articular surface with the jigging system, it was measured and measured a 29 mm patella.? We resected approximately 8 mm of patella.? Patellar height was restored with the patellar component. Once again, the wound was irrigated.? The components were cemented after the bone had been copiously irrigated and subsequently dried. The tibia was cemented into position first with excess cement being cleared for around the components. Following cementing of the tibia, the tibial tray was placed in position. The femur was then cemented in appropriate position and impacted. Excess cement was cleared from around this as well. The knee was then extended and further excess cement was cleared. Following this, the patella was cemented into position. The knee was then once again copiously irrigated with Betadine and saline. It was suctioned dry, and attention was directed to closure after it was further irrigated with Ancef containing normal saline. Closure was accomplished with 0 Vicryl in the fascial tissues.? The suture line of 0 Vicryl was supplemented with strata fix, #1, with a running stitch from proximal to distal and a second running stitch from distal to proximal.? This was followed by Surgiflo and vancomycin powder.? Following this, a 2-0 Monocryl was used in the subcutaneous tissues, and the skin was closed with 3-0 Strata fix.? Care was taken to assure an excellent subcutaneous as well as skin closure.? A sterile dressing was then placed consisting of Dermabond Prineo, OpSite, ABD, sterile soft roll, and an El wrap including over the foot. The patient was returned the Recovery Room in a satisfactory condition. X-rays were obtained and reviewed there.? The patient will be discharged to the floor for postoperative rehabilitation and pain management.
--- NOTE | 2024-01-24 11:25 | XR_ITS ---
WS: [id number] Exam: XR knee RT 1-2V [id number] Date/Time of Exam: 01/24/2024 11:26 AM Reason For Exam: Status post right total knee arthroplasty Comparison 11/30/2023. A RIGHT total knee arthroplasty is noted. Alignment appears satisfactory. Postoperative changes in th e adjacent soft tissues. Pre-existing intramedullary devin in the lower femur. IMPRESSION: 1. RIGHT total knee arthroplasty appearing to be in satisfactory position.
[2024-01-24] MEDS: CELEcoxib 200 mg Capsule PO ×2 (12:55→23:34)
[2024-01-24] MEDS: tranexamic acid 1,000 MG/100 ML PREMIX 600 MG IV (14:47)
--- NOTE | 2024-01-24 14:59 | ANE.PACU2 ---
Inpatient post-anesthesia follow up: Vital signs: Temperature 97.7 F Pulse Rate 72 Respiratory Rate 18 Blood Pressure 125/70 Pulse Oximetry 100 Oxygen Delivery Me thod Room Air Oxygen Flow Rate 6 Fraction of Inspir ed Oxygen Hydration adequate: Yes Nausea and vomiting: No Mental status: Baseline Additional Comments: no apparent anesthetic complications noted
[2024-01-24] MEDS: metoprolol tartrate 50 mg Tablet PO (17:39)
[2024-01-24] MEDS: calcium carbonate 500 mg Chew Tablet 1000 MG PO (17:39)
[2024-01-24] MEDS: sennosides-docusate Tablet 2 TAB PO (17:39)
[2024-01-24] MEDS: mupirocin oint 22 gm 1 APPLIC NASAL (17:40)
[2024-01-24] MEDS: chlorhexidine gluconate 0.12% Btl 473 mL 30 ML MUCOUS MEM ×2 (17:40→21:18)
[2024-01-24] MEDS: iron polysaccharide complex 150 mg Capsule PO (17:40)
[2024-01-24] MEDS: trazodone 150 mg Tablet PO (20:09)
[2024-01-25 02:40] VITALS: RESP 18
[2024-01-25] MEDS: oxyCODONE 5 mg IR Tab/Cap PO ×2 (02:40→10:54)
[2024-01-25 04:00] VITALS: BP 115/58; PULSE 56; RESP 18; TEMP 36.5; O2SAT 95
[2024-01-25] MEDS: acetaminophen 1,000 MG/100 ML PIGGYBACK 400 MG IV (04:29)
[2024-01-25 05:20] LABS: Basophils % 0.2 %; Eosinophils # 0.1 10^3/uL (0.0-0.8); Eosinophils % 0.6 %; Hematocrit 34.3 % (36-47); Lymphocytes # 1.7 10^3/uL (0.8-4.8); Lymphocytes % 12.5 %; Mean Corpuscular HGB Conc 31.8 g/dL (30-55); Mean Corpuscular Volume 100.6 fl (85-98); Mean Platelet Volume 9.2 fL (7.4-10.4); Monocytes # 1.4 10^3/uL (0.2-0.9); Monocytes % 10.4 %; Neutrophils # 10.03 10^3/uL (1.8-7.7); Neutrophils % 75.7 %; Nucleated Red Blood Cells % 0 %; Platelet Count 270 10^3/cmm (157-399); Red Blood Count 3.41 10^6/uL (3.85-5.65); Red Cell Distribution Width 14.8 % (12.1-15.1); White Blood Count 13.24 10^3/uL (3.29-11.43)
[2024-01-25 05:42] LABS: Anion Gap 13.1 (5-19); Blood Urea Nitrogen 16 mg/dL (8-23); Calcium 9.5 mg/dL (8.5-10.5); Carbon Dioxide 27 mmol/L (22-29); Chloride 102 mmol/L (98-107); Creatinine Clr Calc Pharmacy 50.1598; Glucose 95 mg/dL (65-115); Osmolality Calculated 287 mOsm/kg (285-295); Potassium 4.1 mmol/L (3.5-5.1); Sodium 138 mmol/L (136-145)
[2024-01-25] MEDS: ceFAZolin 2,000 MG in sodium chloride 0.9% (plus) 50 ML 100 MG IV (07:27)
[2024-01-25 08:06] VITALS: BP 94/57; PULSE 56; RESP 15; TEMP 36.5; O2SAT 94
[2024-01-25] MEDS: calcium carbonate 500 mg Chew Tablet 1000 MG PO (08:36)
[2024-01-25] MEDS: mupirocin oint 22 gm 1 APPLIC NASAL (08:36)
[2024-01-25] MEDS: potassium chloride ER 20 mEq Tablet PO (08:37)
[2024-01-25] MEDS: metformin 850 mg Tablet 250 MG PO (08:37)
[2024-01-25] MEDS: atorvastatin 40 mg Tablet PO (08:37)
[2024-01-25] MEDS: sennosides-docusate Tablet 2 TAB PO (08:37)
[2024-01-25] MEDS: iron polysaccharide complex 150 mg Capsule PO (08:37)
[2024-01-25] MEDS: ferrous sulfate EC 325 mg Tablet 650 MG PO (08:37)
[2024-01-25] MEDS: metoprolol tartrate 50 mg Tablet PO (08:37)
[2024-01-25] MEDS: cholecalciferol (vitamin D3) 1,000 unit Tablet 1000 UNIT PO (08:37)
[2024-01-25] MEDS: multivitamin therapeutic Tablet 1 TAB PO (08:37)
[2024-01-25] MEDS: aspirin 325 mg EC Tablet PO (08:37)
[2024-01-25] MEDS: chlorhexidine gluconate 0.12% Btl 473 mL 30 ML MUCOUS MEM ×2 (08:38→12:42)
[2024-01-25] MEDS: hydroCHLOROthiazide 25 mg Tablet PO (08:38)
[2024-01-25] MEDS: predniSONE 10 mg Tablet PO (08:38)
[2024-01-25 10:54] VITALS: RESP 18
[2024-01-25] MEDS: acetaminophen 500 mg Tablet 1000 MG PO (10:54)
[2024-01-25 11:44] VITALS: BP 131/60; PULSE 56; RESP 15; TEMP 36.4; O2SAT 98
[2024-01-25] MEDS: CELEcoxib 200 mg Capsule PO (12:41)
--- NOTE | 2024-01-25 13:33 | PM.DCS ---
Discharge Providers Date of Admission: 01/24/24 10:53 Date of Discharge: January 25, 2024 Attending Provider at Admission: Lexus Alvarez MD Attending Provider at Discharge: Lexus Alvarez MD Primary Care Provider: CRYSTAL Johnson Diagnoses at Discharge Discharge Diagnosis (1) Status post total right knee replacement using cement: Status: Acute Permanent problem details: Date of procedure: January 24, 2024 Diagnosis: Right knee osteoarthritis with valgus deformity Procedure done: Right cemented total knee arthroplasty with Jacob guidance Implants: The [place] total knee system with a size 3 triathlon cemented cruciate retaining femur right, a triathlon titanium tibial component size 4 cemented, a triathlon X3 tibial bearing CS insert size 4 X 14 mm and a beaded triathlon titanium asymmetric patella size 29 x 9 mm (2) Arthritis of knee: Status: Acute (3) Valgus deformity, not elsewhere classified, right knee: Status: Acute Reason for Visit Reason for Visit: M25.512 Brief History: This 83-year-old woman presented to the office for evaluation of right knee pain. Previously, she had undergone left total knee arthroplasty for severe valgus deformity and osteoarthritis. She did well following this procedure, and she presented with complaints of similar findings to her opposite right knee. She had had pain for several years which have been worsening. The pain was aggravated by standing and walking. Her knee was giving out causing her to almost fall. She underwent conservative measures without improvement. She wished to proceed with right total knee arthroplasty. Risks and complications were discussed with her. Consents were signed and questions were answered in the office. Hospital Course Hospital Course This 83-year-old woman was admitted to the floor postoperatively under observation status. On the first postoperative day, she worked with physical therapy and was felt safe for discharge to home. She was neurologically intact. Her family was in agreement. Physical Exam Const: COMMON NORMALS: no acute distress, average body habitus, patient oriented x3 and alert GENERAL APPEARANCE: cooperative and comfortable ORIENTATION/CONSCIOUSNESS: Yes awake HENMT: COMMON NORMALS: normocephalic and atraumatic HEAD & SCALP: normocephalic and atraumatic Eye: GENERAL EYE: appearance normal, both eyes and all related structures Chest: COMMONS NORMALS: normal inspection of the chest Resp: COMMON NORMALS: normal respiratory effort EFFORT & INSPECTION: Yes able to speak in complete sentences and Yes symmetric chest movement Neuro: COMMON NORMALS: patient oriented x3 SENSORIUM/ORIENTATION: Yes alert Psych: COMMON NORMALS: mental status grossly normal APPEARANCE: Yes grossly normal ATTITUDE: Yes calm and Yes engaged ATTENTION/CONCENTRATION: Yes attention grossly intact Skin: COMMON NORMALS: no rashes or lesions noted GENERAL SKIN EXAM: no rashes or lesions noted Urinary Catheter Management: Avelar: Cath Placed During This Visit: yes, but has since been removed by the nurse Reason for Continuing Indwelling Catheter: Decision to DC Catheter Urinary Catheter Date of Insertion: 01/24/24 Urinary Catheter Time of Insertion: 08:25 Date Urinary Catheter Removed: 01/25/24 Time Urinary Catheter Discontinued: 06:30 Discharge Data Studies Completed and Pending Completed Studies During Hospitalization Category Date Time Status XR knee RT 1-2V [id number] Routine Exams 01/24/24 11:25 Completed Laboratory Results WBC 13.24 10^3/uL (3.29-11.43) H 01/25/24 05:09 RBC 3.41 10^6/uL (3.85-5.65) L 01/25/24 05:09 Hgb 10.90 g/dL (11.27-16.99) L 01/25/24 05:09 Hct 34.3 % (36-47) L 01/25/24 05:09 MCV 100.6 fl (85-98) H 01/25/24 05:09 MCH 32.0 pg (27-33) 01/25/24 05:09 MCHC 31.8 g/dL (30-55) 01/25/24 05:09 RDW 14.8 % (12.1-15.1) 01/25/24 05:09 Plt Count 270 10^3/cmm (157-399) 01/25/24 05:09 MPV 9.2 fL (7.4-10.4) 01/25/24 05:09 Neut % (Auto) 75.7 % 01/25/24 05:09 Lymph % (Auto) 12.5 % 01/25/24 05:09 [place] % (Auto) 10.4 % 01/25/24 05:09 Eos % (Auto) 0.6 % 01/25/24 05:09 Baso % (Auto) 0.2 % 01/25/24 05:09 Neut # (Auto) 10.03 10^3/uL (1.8-7.7) H 01/25/24 05:09 Lymph # (Auto) 1.7 10^3/uL (0.8-4.8) 01/25/24 05:09 [place] # (Auto) 1.4 10^3/uL (0.2-0.9) H 01/25/24 05:09 Eos # (Auto) 0.1 10^3/uL (0.0-0.8) 01/25/24 05:09 Baso # (Auto) 0.0 10^3/uL (0.0-0.1) 01/25/24 05:09 Nucleated RBC % (auto) 0 % 01/25/24 05:09 Nucleated RBCs # 0.0 /100WBC 01/25/24 05:09 Sodium 138 mmol/L (136-145) 01/25/24 05:09 Potassium 4.1 mmol/L (3.5-5.1) 01/25/24 05:09 Chloride 102 mmol/L (98-107) 01/25/24 05:09 Carbon Dioxide 27 mmol/L (22-29) 01/25/24 05:09 Anion Gap 13.1 (5-19) 01/25/24 05:09 BUN 16 mg/dL (8-23) 01/25/24 05:09 Creatinine 0.6 mg/dL (0.5-0.9) 01/25/24 05:09 GFR Calculation Not Reportable 01/25/24 05:09 Glucose 95 mg/dL (65-115) 01/25/24 05:09 POC Glucose 85 mg/dL (70-110) 01/24/24 07:03 Calculated Osmolality 287 mOsm/kg (285-295) 01/25/24 05:09 Calcium 9.5 mg/dL (8.5-10.5) 01/25/24 05:09 Vitals Last Vital Signs Temp 97.6 F 01/25/24 11:44 Pulse 56 L 01/25/24 11:44 Resp 15 01/25/24 11:44 BP 131/60 01/25/24 11:44 Pulse Ox 98 01/25/24 11:44 O2 Del Method Room Air 01/25/24 11:44 O2 Flow Rate 6 01/24/24 11:30 Discharge Plan Discharge Patient Disposition: Home Health Service Condition: Stable Prescriptions: New acetaminophen 500 mg Tablet 1,000 mg PO Q8H 15 Days Qty: 0 0RF aspirin 325 mg Tablet,Delayed Release (Dr/Ec) 325 mg PO DAILY 30 Days Qty: 0 0RF celecoxib 200 mg Capsule 200 mg PO Q12H 30 Days Qty: 30 0RF Continued Vitamin B-12 1,000 mcg tablet 1,000 mcg PO DAILY Rx Instructions: medication on pts med list that pt brought in vitamin E succinate 67 mg (100 unit) tablet 67 mg PO DAILY methotrexate sodium 2.5 mg tablet See Rx Instructions .ROUTE .COMPLEX Qty: 48 0RF Hold Instructions: Please hold until follow up with primary care provider. Dose Instruction: TAKE 1 TABLET BY MOUTH 3 DAYS A WEEK ON TUESDAY, TUESDAY, AND TUESDAY Rx Instructions: TAKE 1 TABLET BY MOUTH 4 DAYS A WEEK ON TUESDAY, TUESDAY, TUESDAY, and TUESDAY multivitamin [Multiple Vitamins] Tablet 1 tab PO DAILY Rx Instructions: medication on pts med list that pt brought in calcium carbonate [Calcium 600] 600 mg calcium (1,500 mg) Tablet 600 mg PO DAILY Rx Instructions: medication on pts med list that pt brought in ascorbic acid (vitamin C) [Vitamin C] 500 mg Tablet 500 mg PO DAILY Rx Instructions: medication on pts med list that pt brought in ferrous sulfate [iron] 325 mg (65 mg iron) Tablet 650 mg PO DAILY Rx Instructions: medication on pts med list that pt brought in folic acid 800 mcg Tablet 0.8 mg PO DAILY Rx Instructions: medication on pts med list that pt brought in cholecalciferol (vitamin D3) [Vitamin D3] 25 mcg (1,000 unit) Tablet,Chewable 25 mcg PO DAILY Rx Instructions: medication on pts med list that pt brought in Equate Headache Relief 2 tab PO BID Rx Instructions: medication on pts med list that pt brought in prednisone 10 mg tablet 10 mg PO DAILY Rx Instructions: Take 1 tablet by mouth once daily for 90 days metformin 850 mg tablet 250 mg PO DAILY Rx Instructions: Take 1/2 (one-half) tablet by mouth once daily Klor-Con M20 20 mEq tablet,ER particles/crystals 20 meq PO DAILY Rx Instructions: Take 1 tablet by mouth once daily pravastatin 10 mg tablet 10 mg PO DAILY Rx Instructions: Take 1 tablet by mouth once daily trazodone 150 mg tablet 150 mg PO BEDTIME Rx Instructions: Take 1 tablet by mouth once daily metoprolol tartrate 50 mg tablet 50 mg PO BID Rx Instructions: Take 1 tablet by mouth twice daily hydrochlorothiazide 25 mg tablet 25 mg PO DAILY Rx Instructions: TAKE 1 & 1/2 (ONE & ONE-HALF) TABLETS BY MOUTH ONCE DAILY . APPOINTMENT REQUIRED FOR FUTURE REFILLS No Action fluconazole 150 mg tablet 150 mg PO Q3D Qty: 2 0RF Discharge Orders: Discharge Order (Routine); Ordered 01/25/24 Ordered By: Lexus Avlarez Referrals: [facility] [Other] Lexus Alvarez MD [Physician] - 02/21/24 3:00 pm Discharge Diet: Advance as tolerated and Usual diet Discharge Activity: Increase activity as tolerated, Limit activity as instructed, Use walker/crutches as instructed and As per PT/OT instructions Patient Instructions: Aspirin (By mouth), Oxycodone, Rapid Release (By mouth), Celecoxib (By mouth), Total Knee Replacement (GEN), Joint Replacement Stoplight, Opioid Safety Activity Restrictions/Additional Instructions: Weight-bear as tolerated. Gait training, strengthening, and range of motion per physical therapy. You may shower and get your leg wet, but do not soak in water. May remove the large outer dressing, but keep the clear plastic with the weight pad in the middle in place until it comes off on its own. If it does come up on his own and begins to leak, please remove the whole thing. Discharge Attestations Time Spent in Discharge Care*: greater than 30 min Specific Discharge Activities: educating patient, documenting/other paperwork and evaluating patient/reviewing data Status at Discharge: Cognitive status at discharge: cognitively intact, Behavioral status at discharge: cooperative and independent in ADL's, Quality Metrics Clinical Quality Measures [ No reported AMI, CVA or VTE this stay] Coding Level of Care Code Acute Code for Chg Fwd Diagnoses Status post total right knee replacement using cement Z96.651 Arthritis of knee M17.10 Valgus deformity, not elsewhere classified, right knee M21.061
[2024-01-25 14:55] VITALS: BP 131/60; PULSE 56; RESP 15; TEMP 36.4; O2SAT 98
== END 2024-01-25 14:56 | disposition home health service (06) ==
LOC: MEDSURG 10:55
PROVIDERS: Admitting Provider Specialist; PCP Nurse Practitioner Family; Visit Provider Specialist
PROC: 8E0Y0CZ Robotic Assisted Procedure of Lower Extremity, Open Approach (ICD-10-PCS; CPT 27447; principal; 2024-01-24 08:00)
DX: M17.11 Unilateral primary osteoarthritis, right knee (principal); M21.061 Valgus deformity, not elsewhere classified, right knee; M25.761 Osteophyte, right knee; I10 Essential (primary) hypertension; E11.9 Type 2 diabetes mellitus without complications; Z79.84 Long term (current) use of oral hypoglycemic drugs; E78.2 Mixed hyperlipidemia; M79.7 Fibromyalgia; Z87.891 Personal history of nicotine dependence
CPT/HCPCS: 20985; 27447; 36415; 36416; 51702; 73560; 80048; 82962; 85025; 97110; 97116; 97161; 97165; C1713; C1776; C9290; G0378; J0131; J0330; J0690; J1100; J1170; J2371; J2405; J2704; J2710; J2795; J3010; J3370; J3490; J7030; J7512

== ENCOUNTER → 2024-02-14 16:14 | Outpatient (BNVA) | payer MEDICARE, SELFPAY | PROVIDERS: PCP Nurse Practitioner Family; Visit Provider Nurse Practitioner Family | DX: R39.9 Unspecified symptoms and signs involving the genitourinary system (principal) | CPT/HCPCS: 81000 ==

== ENCOUNTER → 2024-02-21 15:23 | Outpatient (BNVA) | payer MEDICARE, SELFPAY | PROVIDERS: PCP Nurse Practitioner Family; Visit Provider Specialist | DX: Z96.651 Presence of right artificial knee joint (principal) | CPT/HCPCS: 73560; 73565; 99024 ==

== ENCOUNTER → 2024-05-07 13:23 | Outpatient (BNVA) | payer MEDICARE, SELFPAY | PROVIDERS: PCP Nurse Practitioner Family; Visit Provider Specialist | DX: Z96.651 Presence of right artificial knee joint (principal); M21.061 Valgus deformity, not elsewhere classified, right knee | CPT/HCPCS: 73560; 73565; 99213 ==

== ENCOUNTER 2024-07-11 12:50 | Outpatient (CLI) | payer MEDICARE, SELFPAY ==
--- NOTE | 2024-07-11 13:00 | MM_ITS ---
WS: [id number] BILATERAL 3D TOMOSYNTHESIS DIGITAL SCREENING MAMMOGRAPHY WITH CAD CLINICAL INFORMATION: Z12.39 - Encounter for other screening for malignant neop... HISTORY: Screening mammogram. No current complaints. COMPARISON: 2022 TECHNIQUE: Bilateral CC and MLO views. FINDINGS: Scattered fibroglandular densities bilaterally. No suspicious focal mass, asymmetry, calcifications, or architectural distortion. No evidence of malignancy. Vascular calcifications. Secretory calcificat ions. A few incidental punctate calcifications. MM/MM [facility] tomosynthesis [id number] IMPRESSION: DENSITY: There are scattered areas of fibroglandular density. BI-RADS: 2 - Benign. FOLLOW UP: 1 Year Follow-up Recommend return to annual screening mammography.
== END 2024-07-11 12:51 | disposition home or self-care (01) ==
LOC: MOBLMAM 12:56
PROVIDERS: PCP Nurse Practitioner Family; Visit Provider Nurse Practitioner Family
DX: Z12.31 Encounter for screening mammogram for malignant neoplasm of breast (principal); R92.323 Mammographic fibroglandular density, bilateral breasts; R92.1 Mammographic calcification found on diagnostic imaging of breast
CPT/HCPCS: 77063; 77067

== ENCOUNTER → 2024-11-05 13:14 | Outpatient (BNVA) | payer MEDICARE, SELFPAY | PROVIDERS: PCP Nurse Practitioner Family; Visit Provider Specialist | DX: Z96.651 Presence of right artificial knee joint (principal); Z96.652 Presence of left artificial knee joint | CPT/HCPCS: 73560; 73565 ==

== ENCOUNTER → 2025-01-21 15:23 | Outpatient (BNVA) | payer MEDICARE, SELFPAY | PROVIDERS: PCP Nurse Practitioner Family; Visit Provider Nurse Practitioner Family | DX: E78.2 Mixed hyperlipidemia (principal); E11.9 Type 2 diabetes mellitus without complications; E55.9 Vitamin D deficiency, unspecified; E87.6 Hypokalemia; D64.89 Other specified anemias; J01.90 Acute sinusitis, unspecified; J34.89 Other specified disorders of nose and nasal sinuses; R39.9 Unspecified symptoms and signs involving the genitourinary system; D64.9 Anemia, unspecified; Z79.899 Other long term (current) drug therapy | CPT/HCPCS: 80053; 80061; 81003; 82306; 82728; 83036; 83550; 83921; 84443; 85025; 87086 ==

== ENCOUNTER → 2025-04-15 10:34 | Outpatient (BNVA) | payer MEDICARE, SELFPAY | PROVIDERS: PCP Nurse Practitioner Family; Visit Provider Nurse Practitioner Family | DX: L90.5 Scar conditions and fibrosis of skin (principal); L82.1 Other seborrheic keratosis; L81.4 Other melanin hyperpigmentation; L57.8 Other skin changes due to chronic exposure to nonionizing radiation; D48.5 Neoplasm of uncertain behavior of skin | CPT/HCPCS: 11102; 17000; 99213 ==

== ENCOUNTER → 2025-05-09 09:55 | Outpatient (BNVA) | payer MEDICARE, SELFPAY | PROVIDERS: PCP Nurse Practitioner Family; Visit Provider Dermatology | DX: L57.0 Actinic keratosis (principal); C44.321 Squamous cell carcinoma of skin of nose; C44.329 Squamous cell carcinoma of skin of other parts of face | CPT/HCPCS: 13132; 17311; 99213 ==

== ENCOUNTER → 2025-05-14 13:39 | Outpatient (BNVA) | payer MEDICARE, SELFPAY | PROVIDERS: PCP Nurse Practitioner Family; Visit Provider Dermatology | DX: C44.321 Squamous cell carcinoma of skin of nose (principal) | CPT/HCPCS: 15260; 17311 ==

== ENCOUNTER → 2025-05-27 13:45 | Outpatient (BNVA) | payer MEDICARE, SELFPAY | PROVIDERS: PCP Nurse Practitioner Family; Visit Provider Dermatology | DX: C44.321 Squamous cell carcinoma of skin of nose (principal); L57.0 Actinic keratosis | CPT/HCPCS: 17000; 99213 ==

== ENCOUNTER → 2025-06-12 09:22 | Outpatient (BNVA) | payer MEDICARE, SELFPAY | PROVIDERS: PCP Nurse Practitioner Family; Visit Provider Dermatology | DX: C44.321 Squamous cell carcinoma of skin of nose (principal) | CPT/HCPCS: 99214 ==

== ENCOUNTER → 2025-06-20 13:46 | Outpatient (BNVA) | payer MEDICARE, SELFPAY | PROVIDERS: PCP Nurse Practitioner Family; Visit Provider Nurse Practitioner Family | DX: Z79.899 Other long term (current) drug therapy (principal) | CPT/HCPCS: 80053; 85025 ==

== ENCOUNTER 2025-07-24 09:48 | Oncology outpatient (recurring) (ONCR) | payer MEDICARE, SELFPAY ==
--- NOTE | 2025-07-16 10:37 | ONCRAD TMN_ITS ---
Radiation Oncology Weekly Treatment Management Patient: Sia Santillan MR#: [id number] : 1940 Attending Physician: Dr. 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 ID: [id number], Energy: 6E, Dose/Fx (cGy): 275, #Fx: , Dose Correction (cGy): 0, Total Dose Delivered (cGy): 3,850, Start Date: 06/27/2025, Elapsed Days: Reason for visit: The patient is being seen today as part of their regularly scheduled weekly on treatment visits to assess for acute toxicities from radiotherapy. Review of Systems: Patient says that the area inside her nose skaggs for a few minutes after her treatment. She otherwise is using her lotion and Vaseline to keep things from being too raw. Vital Signs: Performed on 07/16/2025 10:08 AM BMI - 27.927 kg/m2 (high), Height - 61 in, Weight - 147.8 lbs, Temperature - 97.1 f, Pulse - 62 /min, Respiration - 18 /min, O2 Sat - 97 %, Pain - 0, Fatigue - 0 and BP - 200/ 105 mm(hg)(high). Physical Exam: Her skin is erythematous. There is no dryness. There is no moist desquamation. Imaging: Radiation therapy imaging related to accurate target localization (i.e. KV, MV and CBCT) was reviewed. Appropriate changes, if any, were made to ensure treatment accuracy. Plan: I encouraged her to continue using the tools that are making her treatment tolerable. Will continue with her treatments as planned. Signed by: Dr. Ellen Sutton 07/16/2025 10:35:43 AM
--- NOTE | 2025-07-23 10:20 | ONCRAD TMN_ITS ---
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 ID: [id number], Energy: 6E, Dose/Fx (cGy): 275, #Fx: / 20, Dose Correction (cGy): 0, Total Dose Delivered (cGy): 5,225, Start Date: 06/27/2025, Elapsed Days: 26 Reason for visit: The patient is being seen today as part of their regularly scheduled weekly on treatment visits to assess for acute toxicities from radiotherapy. Review of Systems: Very erythematous around the nose. No skin breakdown. No bleeding appreciated. Patient was using Carmex in the nose which is irritating. She will continue with the Vaseline. She finishes treatment tomorrow and will return in 1 month. Vital Signs: Performed on 07/23/2025 9:52 AM BMI - 27.7 kg/m2 (high), Height - 61 in, Weight - 146.6 lbs, Temperature - 97 f, Pulse - 61 /min, Respiration - 18 /min, O2 Sat - 96 %, Pain - 5, Fatigue - 0 and BP - 181/ 77 mm(hg)(high/). Physical Exam: AAOx3 . As above Imaging: Radiation therapy imaging related to accurate target localization (i.e. KV, MV and CBCT) was reviewed. Appropriate changes, if any, were made to ensure treatment accuracy. Plan: Continue XRT. Will finish treatment tomorrow. RTC in 1 month or sooner if need be. Signed by: Petros Rosario 07/23/2025 10:20:01 AM
--- NOTE | 2025-07-24 10:46 | N.ONRD TS_ITS ---
Radiation Oncology Treatment Summary Patient: Sia Santillan MR#: [id number] : 1940 Age: 84 Sex: Female Dictated by: Petros Rosario Date of Service: 07/24/2025 Referring Physician(s) : Dr. 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 ID: [id number], Energy: 6E, Dose/Fx (cGy): 275, #Fx: 20 / 20, Dose Correction (cGy): 0, Total Dose Delivered (cGy): 5,500, Start Date: 06/27/2025, End Date: 07/24/2025, Elapsed Days: 27 Clinical Summary: The patient tolerated RT well. Moderate erythema noted without moist desquamation. Plan: End of treatment today. Continue on the above medication until the skin reaction resolves. Follow up in one month. Signed by: Petros Rosario>07/24/2025 10:44:30 AM <<Signature on File>>
== END 2025-08-09 23:59 | disposition home or self-care (01) ==
PROVIDERS: PCP Nurse Practitioner Family; Visit Provider Radiology Radiation Oncology
DX: Z51.0 Encounter for antineoplastic radiation therapy (principal); C44.321 Squamous cell carcinoma of skin of nose; Y84.2 Radiological procedure and radiotherapy as the cause of abnormal reaction of the patient, or of later complication, without mention of misadventure at the time of the procedure
CPT/HCPCS: 77336; 77412; 99024

== ENCOUNTER → 2025-08-19 12:12 | Outpatient (BNVA) | payer MEDICARE, SELFPAY | PROVIDERS: PCP Nurse Practitioner Family; Visit Provider Dermatology | DX: C44.321 Squamous cell carcinoma of skin of nose (principal); L72.0 Epidermal cyst; L82.1 Other seborrheic keratosis; Z92.3 Personal history of irradiation; Z08 Encounter for follow-up examination after completed treatment for malignant neoplasm | CPT/HCPCS: 17000; 99213 ==

== ENCOUNTER 2025-08-21 10:00 | Oncology outpatient (recurring) (ONCR) | payer MEDICARE, SELFPAY ==
--- NOTE | 2025-08-21 10:31 | ONCRAD EPV_ITS ---
Radiation Oncology Established Patient Visit Patient: Sia Santillan [id number] : 1940 Age: 84 Sex: Female Dictated by: Petros Rosario Date of Service: 08/21/2025 Referring Physician(s) : Dr. 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 ID: [id number], Energy: 6E, Dose/Fx (cGy): 275, #Fx: 20 / 20, Dose Correction (cGy): 0, Total Dose Delivered (cGy): 5,500, Start Date: 06/27/2025, End Date: 07/24/2025, Elapsed Days: 27 Current History: This is a pleasant 84-year-old female who returns 1 month after receiving definitive XRT to the right nasal ala. She is well-healed at this time and voices no complaints other than occasional minor nosebleed. Current Medications: scorbic acid (vitamin C) (Vitamin C) 500 mg PO DAILYcalcium carbonate (Calcium 600) 600 mg PO DAILYcholecalciferol (vitamin D3) (Vitamin D3) 25 mcg PO DAILYcyanocobalamin (vitamin B-12) (Vitamin B-12) 1,000 mcg PO DAILYferrous sulfate (iron) 650 mg PO DAILYfolic acid 0.8 mg PO DAILYhydrochlorothiazide TAKE 1 & 1/2 (ONE & ONE-HALF) TABLETS BY MOUTH ONCE DAILYmetformin 250 mg (1/2 x 500 mg) PO DAILYmethotrexate sodium TAKE ONE TABLET BY MOUTH FOUR DAYS A WEEK, ON TUESDAY,TUESDAY, TUESDAY, AND TUESDAYmetoprolol tartrate Take 1 tablet by mouth twice dailymultivitamin (Multiple Vitamins tablet) 1 tab PO DAILYpotassium chloride ER (Klor-Con M) Take 1 tablet by mouth once dailypravastatin Take 1 tablet by mouth once dailyprednisone Take 1 tablet by mouth once daily for 90 daystrazodone Take 1 tablet by mouth once dailyvitamin E succinate 67 mg PO DAILY Allergies: codeine Allergy unknownhydrocodone Allergy nauseaibuprofen Allergy hematocheziamoxifloxacinunknownsulfamethoxazole (Bactrim) Allergy unknowntramadol Allergy nausea, headachetrimethoprim (Bactrim) Allergy unknown Current Complaints / Review of Systems: . Vital Signs: Performed on 08/21/2025 10:19 AM BMI - 27.927 kg/m2 (high), Height - 61 in, Weight - 147.8 lbs, Temperature - 96.9 f, Pulse - 62 /min, Respiration - 16 /min, O2 Sat - 98 %, Pain - 0, Fatigue - 0 and BP - 186/ 79 mm(hg)(high/). Physical Exam: General: Alert and oriented x 3. No acute distress. HEENT: Normocephalic, atraumatic. Extraocular Movements Intact: Pupils Equal, Round, Reactive to Light and Accommodation: Sclerae anicteric. Oral cavity is clear without lesions, masses or ulcers. Right nasal ala skin is well-healed NECK: Supple without supraclavicular or jugular lymphadenopathy. LUNGS: Clear to auscultation bilaterally without rales, rhonchi or wheeze. HEART: Regular rate and rhythm, normal S1 and S2 without murmur, gallop or rub. MUSCULOSKELETAL: No tenderness or percussion pain over the axial skeleton, scapulae or pelvis. ABDOMEN: Soft, nontender, nondistended without masses or organomegaly. Bowell sounds are present. EXTREMITIES: No peripheral edema is identified. Limited motor and sensory examination are grossly intact and symmetric bilaterally. NEUROLOGIC: Cranial nerves II ???XII are grossly intact. Normal sensation, strength 5/5 in all extremities, normal gait, no ataxia. Performance Status: KPS 90 Lab: None pending. Pathology: Primary, c44.321 - squamous cell carcinoma of skin of nose, Diagnosed 04/15/2025 (active) . Imaging: See HPI Impression: SCC RT Nasal Ala PLAN: Patient desires to follow-up with Dr. Quesada and we will see her in the future if specifically requested. Signed by: 08/21/2025 10:29:54 AM <<Signature on File>> Time spent with patient: 20 min global fee CPT Code: CPT Code:
== END 2025-09-08 23:59 | disposition home or self-care (01) ==
PROVIDERS: PCP Nurse Practitioner Family; Visit Provider Radiology Radiation Oncology
DX: C44.321 Squamous cell carcinoma of skin of nose (principal); Z92.3 Personal history of irradiation
CPT/HCPCS: 99024

== ENCOUNTER 2025-08-21 10:36 | Outpatient (CLI) | payer MEDICARE, SELFPAY ==
--- NOTE | 2025-08-21 10:53 | MM_ITS ---
WS: [id number] SCREENING DIGITAL BREAST TOMOSYNTHESIS MAMMOGRAM WITH CAD HISTORY: SCREENING COMPARISON: 07/11/2024, 02/17/2023, 02/04/2022 Bilateral CC and MLO with tomosynthesis and synthetic mammography submitted. Computer aided detection analyzed. Breast composition: There are scattered areas of fibroglandular density. New spiculated high density mass measuring 5 x 5 x 5 mm in the medial inferior LEFT breast. There are additional numerous arterial calcifications in each breast. Benign calcifications in each breast. MM/MM [facility] tomosynthesis [id number] IMPRESSION: BI-RADS: 0 - Incomplete: Need additional imaging evaluation. FOLLOW UP: Need Additional Imaging LEFT breast: Spot compression views (CC and MLO). True ML. Ultrasound to follow if abnormality persists.
== END 2025-08-21 10:37 | disposition home or self-care (01) ==
LOC: RAD 10:37
PROVIDERS: PCP Nurse Practitioner Family; Visit Provider Nurse Practitioner Family
DX: Z12.31 Encounter for screening mammogram for malignant neoplasm of breast (principal); R92.323 Mammographic fibroglandular density, bilateral breasts; N63.24 Unspecified lump in the left breast, lower inner quadrant
CPT/HCPCS: 77063; 77067

== ENCOUNTER 2025-09-10 10:20 | Outpatient (CLI) | payer MEDICARE, SELFPAY ==
--- NOTE | 2025-09-10 10:45 | MM_ITS ---
WS: [id number] ADDITIONAL VIEWS LEFT MAMMOGRAM WITH DIGITAL BREAST TOMOSYNTHESIS. LEFT breast ultrasound, LIMITED. HISTORY: Mass noted on screening mammogram 08/21/2025. COMPARISON: 08/21/2025, 07/11/2024 Spot compression views LEFT breast in CC, MLO projections and true ML submitted with digital breast tomosynthesis and SM. Breast composition: There are scattered areas of fibroglandular density. Spiculated high density mass with a few calcifications present in the medial LEFT breast near 8:00 at an anterior depth. Spiculated mass measures 7 x 4 x 5 mm. There are additional benign arterial calcifications in the LEFT breast. LEFT breast ultrasound, limited. Hypoechoic slightly spiculated mass at 8:00, 4 cm from the nipple. There are few echogenic foci from calcifications. Mass measures 0.5 x 0.6 x 0.5 cm. Mild increased vascularity. Mass corresponds to the mammographic abnormality. MM/MM diag LT tomosynthesis [id number] IMPRESSION: BI-RADS: 4 - Suspicious Finding - Biopsy Should Be Considered. FOLLOW UP: Biopsy Recommended Ultrasound-guided biopsy recommended of the solid mass in the LEFT breast at 8: 00. Notified CRYSTAL Tipton at 09/10/2025 11:32 AM.
--- NOTE | 2025-09-10 11:15 | US_ITS ---
WS: [id number] ADDITIONAL VIEWS LEFT MAMMOGRAM WITH DIGITAL BREAST TOMOSYNTHESIS. LEFT breast ultrasound, LIMITED. HISTORY: Mass noted on screening mammogram 08/21/2025. COMPARISON: 08/21/2025, 07/11/2024 Spot compression views LEFT breast in CC, MLO projections and true ML submitted with digital breast tomosynthesis and SM. Breast composition: There are scattered areas of fibroglandular density. Spiculated high density mass with a few calcifications present in the medial LEFT breast near 8:00 at an anterior depth. Spiculated mass measures 7 x 4 x 5 mm. There are additional benign arterial calcifications in the LEFT breast. LEFT breast ultrasound, limited. Hypoechoic slightly spiculated mass at 8:00, 4 cm from the nipple. There are few echogenic foci from calcifications. Mass measures 0.5 x 0.6 x 0.5 cm. Mild increased vascularity. Mass corresponds to the mammographic abnormality. US/US breast LT limited* [id number] IMPRESSION: BI-RADS: 4 - Suspicious Finding - Biopsy Should Be Considered. FOLLOW UP: Biopsy Recommended Ultrasound-guided biopsy recommended of the solid mass in the LEFT breast at 8: 00. Notified CRYSTAL Tipton at 09/10/2025 11:32 AM.
== END 2025-09-10 10:21 | disposition home or self-care (01) ==
LOC: RAD 10:21
PROVIDERS: PCP Nurse Practitioner Family; Visit Provider Nurse Practitioner Family
DX: R92.8 Other abnormal and inconclusive findings on diagnostic imaging of breast (principal); R92.323 Mammographic fibroglandular density, bilateral breasts; N63.24 Unspecified lump in the left breast, lower inner quadrant; R92.1 Mammographic calcification found on diagnostic imaging of breast
CPT/HCPCS: 76642; 77061; 77063

== ENCOUNTER 2025-09-25 13:23 | Oncology outpatient (recurring) (ONCR) | payer MEDICARE, SELFPAY ==
--- NOTE | 2025-09-25 14:25 | US_ITS ---
WS: [id number] ULTRASOUND-GUIDED LEFT BREAST BIOPSY HISTORY: Spiculated hypoechoic mass LEFT breast at 8:00. COMPARISON: 09/10/2025 Procedure, risks and complications are explained to the patient. Medications are reviewed. Consent is obtained. The mass in the LEFT breast is localized with ultrasound. Mass localizes to 8:00, 4 cm from the nipple. Skin is cleansed with ChloraPrep and anesthetized with 1% buffered lidocaine. Small dermatome is made. Under sterile conditions mass is biopsied with a 14-gauge Achieve needle. Multiple core biopsies are performed. Material placed in formalin and sent to pathology for review. No complications encountered. Breast tissue marker (Bard ultrasound enhanced ribbon): Single. Patient left the radiology suite with no complications. Patient is instructed to return to [facility] or call with any concerns. US/[place] [id number] IMPRESSION: 1. Uncomplicated core needle biopsy LEFT breast mass at 8:00. 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 Breast progno stic profile is pending and will be reported separately. RECOMMENDATION: Follow-up with oncology and breast surgery.
[2025-10-01 14:17] LABS: Breast Profile ER,PR,HER2,Ki-6 See Report
== END 2025-10-09 23:59 | disposition home or self-care (01) ==
LOC: ONCMED 13:26
PROVIDERS: PCP Nurse Practitioner Family; Visit Provider Nurse Practitioner Family
DX: C50.312 Malignant neoplasm of lower-inner quadrant of left female breast (principal)
CPT/HCPCS: 19083; 88305; 88361; 88374

== ENCOUNTER → 2025-09-27 11:09 | Outpatient (BNVA) | payer MEDICARE, SELFPAY | PROVIDERS: PCP Nurse Practitioner Family; Visit Provider Nurse Practitioner Family | DX: Z79.899 Other long term (current) drug therapy (principal); D64.89 Other specified anemias; M17.10 Unilateral primary osteoarthritis, unspecified knee; E11.9 Type 2 diabetes mellitus without complications | CPT/HCPCS: 80053; 80061; 81003; 82306; 82728; 83036; 83550; 85025 ==